=== PATIENT | male | born 1940 | race Caucasian/White ===

== ENCOUNTER 2016-09-28 19:58 | Inpatient (IN) | payer MEDICARE ==
[2016-09-28] MEDS ORDERED: cefTRIAXone(*) 1 GM in NS 0.9% 50 ML* 50 ML IVPB ONE (20:45)
[2016-09-28 21:06] LABS: Hematocrit 40 % (42-52); Hemoglobin 13.9 g/dl (14.0-18.0); Mean Corpuscular HGB Conc 35 g/dl (31-36); Mean Corpuscular Hemoglobin 31 pg (27-31); Mean Corpuscular Volume 90 fL (80-94); Mean Platelet Volume 7 um3 (7.4-10.4); Red Blood Count 4.44 10^6/ul (4.0-5.4); Red Cell Distribution Width 12 % (10.5-15); White Blood Count 9.4 10^3/ul (3.5-10.8)
[2016-09-28 21:13] LABS: Urine Bacteria Absent (Absent); Urine Bilirubin Negative (Negative); Urine Glucose Negative (Negative); Urine Nitrite Negative (Negative)
[2016-09-28 21:21] LABS: BUN/Creatinine Ratio 17.1 (8-20); C Reactive Protein 17.66 mg/L (< 5.00); Calcium 9.3 mg/dL (8.6-10.3); EGFR African American 88.8 (>60); Globulin 2.8 g/dL (2-4); Potassium 3.7 mmol/L (3.5-5.0); Total Bilirubin 0.9 mg/dL (0.2-1.0); Total Protein 6.8 g/dL (6.4-8.9)
--- NOTE | 2016-09-28 21:47 | RAD ---
CLINICAL HISTORY: Fever, flank pain, kidney stones COMPARISON: CT urogram dated November 06, 2015 TECHNIQUE: Multiple contiguous axial CT scans were obtained of the abdomen and pelvis, without intravenous contrast enhancement. Coronal and sagittal multiplanar reformations are submitted for review. Oral contrast was not administered. FINDINGS: The study is limited by the lack of intravenous contrast. This limits evaluation of the solid organs and vasculature. LUNG BASES: The lung bases are clear. LIVER: The liver is normal in shape, size, contour, and attenuation. BILE DUCTS: There is no intrahepatic or extrahepatic biliary dilatation. GALLBLADDER: The gallbladder is incompletely distended and is not well evaluated PANCREAS: The pancreas is normal, without mass or ductal dilatation. SPLEEN: Normal in size and appearance. UPPER GI TRACT: Evaluation of the gastrointestinal tract is limited by incomplete gastric distention. The upper GI tract is unremarkable. SMALL BOWEL AND MESENTERY: The small bowel is normal in contour, course, and caliber. There is no obstruction or dilatation. COLON: The colon is normal in contour, course, caliber. There is no pericolonic inflammatory change. ADRENALS: Normal bilaterally. KIDNEYS: Again noted are 2 calculi of the distal left ureter. This is similar in size and position to the November 06, 2015 examination. There is no appreciable hydronephrosis. There are nonobstructing renal calyceal stones bilaterally BLADDER: The bladder is smooth in contour. PELVIC ORGANS: The prostate is diffusely enlarged. The seminal vesicles are symmetric. AORTA: There is calcific atherosclerotic disease of the abdominal aorta and its branches, without aneurysmal dilatation IVC: Unremarkable LYMPH NODES: There is no lymphadenopathy by size criteria. ABDOMINAL WALL: There is no evidence for abdominal wall hernia. BONES AND SOFT TISSUES: Degenerative changes are noted of the spine OTHER: None IMPRESSION: AGAIN NOTED IS BILATERAL NEPHROLITHIASIS INCLUDING STABLE CALCULI OF THE DISTAL LEFT URETER. THERE IS NO APPRECIABLE HYDRONEPHROSIS ENLARGED PROSTATE
[2016-09-28] MEDS ORDERED: Gentamicin ADULT per pharmacy 1 NOTE MISC FOLLOW UP PRN (23:12)
[2016-09-28] MEDS ORDERED: Ondansetron INJ* 2 MG/ML VIAL IV PRN (23:12)
[2016-09-28] MEDS ORDERED: NS 0.9% 1000 ML* 1,000 ML IV ONE (23:25)
--- NOTE | 2016-09-28 23:25 | ED ---
William Jesus Erika, scribed for Pineda Camarena MD on 09/28/16 at 2125 . GI/ HPI - HPI Summary HPI Summary: Patient is a 76-year-old male presenting to the ED with a CC of fever with kidney stone. Patient reports he has had a left-sided kidney stone for years. Pt then had some hematuria, and CT scan showed that the 6.33 mm stone was moving lower. A few nights ago, patient developed bilateral flank pain, which has since resolved. He reports he has had decreased urine output intermittently this past week. He notes some urgency, but denies burning with urination. Today at 19:00, patient developed chills, lightheadedness, and a dull headache, so checked his temperature, which was 102.8. He called Dr. Mtz who recommended patient come to the ED. - History of Current Complaint Chief Complaint: EDFever Time Seen by Provider: 09/28/16 20:23 Stated Complaint: FEVER 102.7/LIGHT HEADED/FLANK PAIN Hx Obtained From: Patient Onset/Duration: Started Days Ago, Atraumatic, Still Present Timing: Intermittent Severity: Moderate Pain Intensity: 6 Location of Pain: Flank - bilateral Associated Signs and Symptoms: Positive: Fever, Chills, Lightheadedness, Other: - headache - Allergy/Home Medications Allergies/Adverse Reactions: Allergies Allergy/AdvReac Type Severity Reaction Status Date / Time No Known Allergies Allergy Verified 11/06/15 09:11 PMH/Surg Hx/FS Hx/Imm Hx Endocrine/Hematology History: Reports: Hx Thyroid Disease - HX OF HYPERPARATHYROIDISM Denies: Hx Diabetes, Hx Systemic Lupus Erythematosus Cardiovascular History: Denies: Hx Congestive Heart Failure, Hx Hypertension History: Reports: Hx Kidney Stones - HISTORY OF AND CURRENTLY Denies: Hx Dialysis Musculoskeletal History: Reports: Hx Arthritis Denies: Hx Rheumatoid Arthritis Sensory History: Reports: Hx Contacts or Glasses - GLASSES Denies: Hx Hearing Aid Opthamlomology History: Reports: Hx Contacts or Glasses - GLASSES - Cancer History Hx Chemotherapy: No - Surgical History Surgery Procedure, Year, and Place: kidney stones removed 6X+. EXC BLADDER TUMORS 01/23-[facility] [place]. PARATHYROID SURGERY- [place]-20 YEARS Hx Anesthesia Reactions: No Infectious Disease History: Denies: Traveled Outside the [place] in Last 30 Days - Family History Known Family History: Positive: Other - bladder tumor - Social History Alcohol Use: Daily Alcohol Amount: 3 OUNCES DAILY Substance Use Type: Reports: None Hx Tobacco Use: Yes Smoking Status (MU): Former Smoker Amount Used/How Often: X 5 YEARS Have You Smoked in the Last Year: No Review of Systems Positive: Fever, Chills Genitourinary: Other - decreased urine output Positive: flank pain - bilateral, hematuria, urgency. Negative: burning Neurological: Other - lightheadedness Positive: Headache All Other Systems Reviewed And Are Negative: Yes Physical Exam Triage Information Reviewed: Yes Vital Signs On Initial Exam: Initial Vitals Temp Pulse Resp BP Pulse Ox 102.9 F 78 18 122/79 99 09/28/16 20:09 09/28/16 20:09 09/28/16 20:09 09/28/16 20:09 09/28/16 20:09 Vital Signs Reviewed: Yes Appearance: Positive: Well-Appearing, No Pain Distress Skin: Positive: Warm, Skin Color Reflects Adequate Perfusion, Dry Head/Face: Positive: Normal Head/Face Inspection Eyes: Positive: Normal ENT: Positive: Normal ENT inspection Neck: Positive: Supple, Nontender Respiratory/Lung Sounds: Positive: Clear to Auscultation, Breath Sounds Present Cardiovascular: Positive: RRR Abdomen Description: Positive: Nontender, Soft. Negative: CVA Tenderness (R), CVA Tenderness (L) Bowel Sounds: Positive: Present Musculoskeletal: Positive: Normal Neurological: Positive: Normal Psychiatric: Positive: Affect/Mood Appropriate Diagnostics - Vital Signs Vital Signs Temp Pulse Resp BP Pulse Ox 09/28/16 20:09 102.9 F 78 18 122/79 99 - Laboratory Lab Results: Lab Results 09/28/16 09/28/16 09/28/16 Range/Units 20:25 20:25 20:28 WBC 9.4 (3.5-10.8) 10^3/ul RBC 4.44 (4.0-5.4) 10^6/ul Hgb 13.9 L (14.0-18.0) g/dl Hct 40 L (42-52) % MCV 90 (80-94) fL MCH 31 (27-31) pg MCHC 35 (31-36) g/dl RDW 12 (10.5-15) % Plt Count 223 (150-450) 10^3/ul MPV 7 L (7.4-10.4) um3 Neut % (Auto) 80.8 (38-83) % Lymph % (Auto) 9.1 L (25-47) % [place] % (Auto) 9.0 (1-9) % Eos % (Auto) 0.4 (0-6) % Baso % (Auto) 0.7 (0-2) % Absolute Neuts (auto) 7.6 (1.5-7.7) 10^3/ul Absolute Lymphs (auto) 0.9 L (1.0-4.8) 10^3/ul Absolute Monos (auto) 0.8 (0-0.8) 10^3/ul Absolute Eos (auto) 0 (0-0.6) 10^3/ul Absolute Basos (auto) 0.1 (0-0.2) 10^3/ul Absolute Nucleated RBC 0 10^3/ul Nucleated RBC % 0 Sodium 135 (133-145) mmol/L Potassium 3.7 (3.5-5.0) mmol/L Chloride 101 (101-111) mmol/L Carbon Dioxide 29 (22-32) mmol/L Anion Gap 5 (2-11) mmol/L BUN 18 (6-24) mg/dL Creatinine 1.05 (0.67-1.17) mg/dL Est GFR ( Amer) 88.8 (>60) Est GFR (Non-Af Amer) 69.0 (>60) BUN/Creatinine Ratio 17.1 (8-20) Glucose 112 H (70-100) mg/dL Calcium 9.3 (8.6-10.3) mg/dL Total Bilirubin 0.90 (0.2-1.0) mg/dL AST 17 (13-39) U/L ALT 16 (7-52) U/L Alkaline Phosphatase 55 (34-104) U/L C-Reactive Protein 17.66 H (< 5.00) mg/L Total Protein 6.8 (6.4-8.9) g/dL Albumin 4.0 (3.2-5.2) g/dL Globulin 2.8 (2-4) g/dL Albumin/Globulin Ratio 1.4 (1-3) Urine Color Yellow Urine Appearance Clear Urine pH 6.0 (5-9) Ur Specific [place] 1.013 (1.010-1.030) Urine Protein 1+(30 mg/dl) H (Negative) Urine Ketones Negative (Negative) Urine Blood 2+ H (Negative) Urine Nitrate Negative (Negative) Urine Bilirubin Negative (Negative) Urine Urobilinogen Negative (Negative) Ur Leukocyte Esterase 1+ H (Negative) Urine WBC (Auto) 3+(>20/hpf) H (Absent) Urine RBC (Auto) 3+(>10/hpf) H (Absent) Urine Bacteria Absent (Absent) Urine Glucose Negative (Negative) Result Diagrams: 09/28/16 20:25 09/28/16 20:25 Lab Statement: Any lab studies that have been ordered have been reviewed, and results considered in the medical decision making process. - CT CT A/P W/O CT Interpretation Completed By: Radiologist - IMPRESSION: AGAIN NOTED IS BILATERAL NEPHROLITHIASIS INCLUDING STABLE CALCULI OF THE DISTAL LEFT URETER. THERE IS NO APPRECIABLE HYDRONEPHROSIS ENLARGED PROSTATE GIGU Course/Dx - Course Course Of Treatment: Mr. Cox has a UTI and ureterolithiasis. There is no obstruction. He was given fluids and antibiotics and will be admitted to the hospitalist service to be seen by Dr. Mtz in the AM. - Diagnoses Provider Diagnoses: UTI (urinary tract infection), Ureterolithiasis - Physician Notifications Discussed Care Of Patient With: Dr. Mtz (urology) at 21:53 - discussed CT results. recommends admission. Dr. John (hospitalist) at 21:57 - agrees to admit - Critical Care Time Critical Care Time: 30-74 min Discharge - Discharge Plan Condition: Stable Disposition: ADMITTED TO [facility] Referrals: Delmy Jones MD [Primary Care Provider] - The documentation as recorded by the William river Erika accurately reflects the service I personally performed and the decisions made by , Pineda Camarena MD.
[2016-09-29] MEDS: Acetaminophen TAB* 325 MG PO PRN ×2 (00:06→07:51)
[2016-09-29] MEDS ORDERED: HYDROcodone/ACETAMIN 5-325 MG* 1 TAB PO PRN (00:17)
[2016-09-29 05:25] LABS: Hematocrit 41 % (42-52); Hemoglobin 13.7 g/dl (14.0-18.0); Mean Corpuscular HGB Conc 33 g/dl (31-36); Mean Corpuscular Hemoglobin 31 pg (27-31); Mean Corpuscular Volume 92 fL (80-94); Mean Platelet Volume 7 um3 (7.4-10.4); Red Blood Count 4.46 10^6/ul (4.0-5.4); Red Cell Distribution Width 12 % (10.5-15); White Blood Count 10.1 10^3/ul (3.5-10.8)
[2016-09-29] MEDS ORDERED: ALPRAZolam TAB* 0.25 MG PO PRN (07:18)
[2016-09-29] MEDS ORDERED: cefTRIAXone VIAL(*) 1,000 MG VIAL ONE (09:42)
--- NOTE | 2016-09-29 09:42 | HP ---
ADMISSION HISTORY AND PHYSICAL: DATE OF ADMISSION: 09/28/16 CHIEF COMPLAINT: Flank pain and fever. HISTORY OF PRESENT ILLNESS: Mr. Cox is a 76-year-old man with known recurrent kidney stones who reports an episode of bilateral flank pain that began 4 or 5 days ago and resolved without any intervention. The patient reports a longer course of illness where he has had intermittent urgency and gross hematuria in the past 10 to 12 days. He had an ultrasound of his kidneys routinely with Dr. Mtz around 10 to 12 days ago, and at that point there was a kidney stone in the left ureter. The patient had another episode of more urinary urgency and hematuria and had repeat ultrasound with Dr. Mtz about 4 or 5 days prior to admission and this showed that the stone had moved two- thirds the way to the distal ureter. The patient was advised to stay hydrated and was started on Rapaflo to aid passage of the stone. Two nights prior to the admission the patient developed more intense bilateral flank pain and fever with malaise. He has been drinking plenty of fluids but has poor urine output according to him. On the night of admission, the patient had a temperature of 102.7 and was advised by Dr. Mtz to come to the emergency room for admission. PAST MEDICAL HISTORY: Include recurrent kidney stones, history of hyperparathyroidism, which is the cause of recurring kidney stones, but he has had parathyroidectomy completed successfully. 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 PAST SURGICAL HISTORY: Parathyroidectomy and ureteral stent in the past. MEDICATIONS: On admission: 1. Hydrocodone left over from previous event use p.r.n. 2. Ibuprofen 400 mg t.i.d. p.r.n. 3. Atorvastatin 10 mg p.o. q.h.s. 4. Rapaflo 8 mg p.o. daily. ALLERGIES: None. FAMILY HISTORY: Notable for mother of colon cancer. Father had prostate cancer, but of Alzheimer's dementia. The patient has a twin brother who has also had low-grade bladder transitional cell carcinoma. 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 He is . He has one child. His healthcare proxy will be his brother Khurram in [place], [place]. Tobacco use, he quit tobacco age 16, only used it for a few months. Alcohol 3 ounces per day. No recreational drugs. REVIEW OF SYSTEMS: The patient denies any anorexia or weight loss. The patient denies any palpitations or chest pain. The patient denies any cough or shortness of breath. The patient denies any nausea, vomiting, diarrhea, or abdominal pain. Remainder of a 14-point review of systems is negative other than that mentioned in the HPI. PHYSICAL EXAMINATION GENERAL: He is alert, in no acute distress. VITAL SIGNS: Temperature 39.4, pulse 78, respirations 18, blood pressure 123/79 , O2 sat is 99% room air. HEENT: Head is normocephalic, atraumatic. Sclera anicteric. Pupils are equal , round and reactive to light and accommodation. Oropharynx is moist, no lesions. NECK: No JVD. No carotid bruits. No thyromegaly. LUNGS: Clear to auscultation and percussion bilaterally. HEART: Regular rate and rhythm. No murmurs, rubs, or gallops. ABDOMEN: Soft, nontender. Positive bowel sounds. No hepatosplenomegaly. There is no CVA tenderness. EXTREMITIES: No peripheral edema. Dorsalis pedis pulses are 2+ bilaterally. NEUROLOGIC: Cranial nerves II through XII are intact. Motor strength is 5/5 throughout. Deep tendon reflexes are symmetric. LABORATORY DATA: Sodium 135, potassium 3.7, chloride 101, bicarb 29, BUN 18, creatinine 1.05, glucose 112, calcium 9.3, albumin 4.0, AST 17, ALT 16, CRP 17.6. White count 9.4, hemoglobin 13.9, hematocrit 40%, platelet 223. Urinalysis shows 1+ protein, 2+ blood, 2+ white cells, negative nitrites, 3+ red blood cells. EKG shows normal sinus rhythm. No ischemic ST-T wave changes. CT of abdomen and pelvis shows calculus in the left distal ureter with no hydronephrosis. There is also other calculi up in the kidneys that are nonobstructive. ASSESSMENT AND PLAN: A 76-year-old man presenting with pyelonephritis as a complication of renal stone. The patient has had risk of sepsis, likely gram- negative, due to retrograde infection. The patient will be admitted to hospital and be started on ceftriaxone and gentamicin to cover gram-negatives such as E. coli, klebsiella. The patient will require removal or passage of the stone and it is difficult to clear infection with a foreign body in the ureter. The patient will have consultation with Dr. Mtz in the morning likely will need a stent and retrieval. I will continue him on IV fluids and Rapaflo in the interim. Sequential compression devices will be available for DVT prophylaxis as we should avoid heparin worsening his hematuria. CODE STATUS: Full. CC: Dr. Delmy Jones; Dr. Mtz* [id number]/[facility] #: [id number] MTDD
[2016-09-29] MEDS ORDERED: Iohexol 180 (CONTRAST) 10 ML SDV IV ONE (10:00)
[2016-09-29] MEDS ORDERED: Midazolam* 1 MG/ML 2 ML VIAL (2 MG) ONE (10:11)
[2016-09-29] MEDS ORDERED: fentaNYL* 50 MCG/ML 2 ML VIAL (100 MCG VIAL) ONE (10:11)
[2016-09-29] MEDS ORDERED: Ketorolac INJ* 30 MG/ML 1 ML VIAL ONE (10:29)
[2016-09-29] MEDS ORDERED: Ondansetron INJ* 2 MG/ML VIAL ONE (10:29)
[2016-09-29] MEDS ORDERED: Dexamethasone IV* 4 MG/ML 1 ML (4 MG) ONE (10:29)
[2016-09-29] MEDS ORDERED: Propofol* 10 MG/ML 20 ML BTL IV PUSH ONE (10:29)
--- NOTE | 2016-09-29 10:49 | CONS ---
CONSULTATION NOTE: DATE OF CONSULTATION: 09/29/16 HISTORY OF PRESENT ILLNESS: Mr. Cox is a 76-year-old white male who was admitted last night with left flank pain associated with fever and some chills, and who will having urgent placement of a left ureteral stent. I have been following Mr. Cox for several years because of past history of renal calculus disease and because of history of low-grade bladder tumor. He had past history of renal calculi, required stent placement. One year ago, he was worked up because of gross hematuria and had a CT urogram, which showed non obstructing left ureteral calculi measuring about 6 mm. The stones seemed to have passed spontaneously and he has been doing well. He presented about 7 to 10 days ago with left flank pain and hematuria. Office renal ultrasound showed a 6 mm calculus in the proximal left ureter. He had repeat ultrasound and it showed the stone had moved into the distal ureter and there was no associated hydronephrosis. He had only mild pain and no signs of any urinary tract infection. His U/A showed microhematuria but no pyuria. He had been managed conservatively with Rapaflo and pain medication. The patient called me yesterday night because of a fever of 102.6 and associated with chilliness and mild left flank pain. He did not have any voiding symptoms to suggest prostatitis. The patient was sent to the emergency room where his white count was normal. His urinalysis was positive for esterase and blood, negative for nitrites. He had a noncontrast CT of the abdomen and pelvis which showed no hydronephrosis, there was minute stone in each kidney and there were, what seemed like, 2 calculi measuring about 4 to 5 mm each, adjacent to each other, located in the distal left ureter about 4 cm above the ureterovesical junction. The patient was started on IV fluids and given IV Rocephin and gentamicin. He became afebrile during the night and was doing very well. However, this morning he had another fever of 102.6. He did not have any tachycardia nor hypotension. He has been feeling well otherwise. PHYSICAL EXAMINATION: On physical exam today, he looks comfortable. There is mild left CVA tenderness. The rest of the abdominal exam is normal. His vital signs are normal IMPRESSION: Minimally obstructing left ureteral calculi with episodes of fever and mild left flank pain suggestive of pyelonephritis. PLAN: Considering the above, the plan is to perform a cystoscopy and placement of a left ureteral stent. No attempt will be made at ureteroscopy for stone extraction considering that he is still febrile. The patient will require another admission for left ureteroscopy and stone extractions. I discussed the above the plans with the patient. All his questions were answered. [id number]/[facility] #: [id number] DASHAWN
[2016-09-29] MEDS ORDERED: DiMENhydriNATE IV* 50 MG/ML VIAL IV PUSH PRN (10:52)
[2016-09-29] MEDS ORDERED: fentaNYL* 50 MCG/ML 2 ML VIAL (100 MCG VIAL) IV PRN (10:52)
--- NOTE | 2016-09-29 11:03 | PN ---
Subjective Date of Service: 09/29/16 Interval History: Patient seen and examined at bedside. Denies chest pain, SOB, abd pain, flank pain, n/v. No fever/chills recently. Patient recently returned from OR s/p ureteral stent placement. Family History: Unchanged from Admission Social History: Unchanged from Admission Past Medical History: Unchanged from Admission Objective Active Medications: Acetaminophen (Tylenol Tab*) 650 mg PO Q4H PRN PRN Reason: FEVER/HEADACHE Last Admin: 09/29/16 07:51 Dose: 650 mg Hydrocodone Bitart/Acetaminophen ([place] 5-325 Tab*) 1 tab PO Q4H PRN PRN Reason: PAIN Alprazolam (Xanax Tab*) 0.25 mg PO QID PRN PRN Reason: ANXIETY Atorvastatin Calcium (Lipitor*) 10 mg PO 1700 KATH Dimenhydrinate (Dramamine Iv*) 25 mg IV PUSH ONCE PRN PRN Reason: NAUSEA/VOMITING Stop: 09/29/16 10:53 Fentanyl Citrate (Fentanyl*) 50 mcg IV Q5M PRN PRN Reason: PAIN - MODERATE Stop: 09/29/16 11:13 Ceftriaxone Sodium 1,000 mg/ (Sodium Chloride) 50 mls @ 200 mls/hr IVPB Q24H KATH Gentamicin Sulfate 110 mg/ (Sodium Chloride) 102.75 mls @ 205.5 mls/hr IVPB Q12H KATH Ondansetron HCl (Zofran Inj*) 4 mg IV Q6H PRN PRN Reason: NAUSEA Pharmacy Consult (Gentamicin Adult Per Pharmacy) 1 note FOLLOW UP .GENT PER PHARMACY PRN PRN Reason: PER PROTOCOL Stop: 10/12/16 23:12 Pharmacy Profile Note (Gentamicin Peak Level*) 1 note FOLLOW UP 1000 ONE Stop: 09/30/16 10:01 Pharmacy Profile Note (Gentamicin Trough Level) 1 note FOLLOW UP 0830 ONE Stop: 09/30/16 08:31 Silodosin (Rapaflo(Nf)) 8 mg PO DAILY KATH Vital Signs 09/29/16 09/29/16 09/29/16 00:26 00:40 00:43 Temperature 101.7 F 98.9 F 98.9 F Pulse Rate 78 88 88 Respiratory 18 18 18 Rate Blood Pressure 122/79 150/70 150/70 (mmHg) O2 Sat by Pulse 96 Oximetry 05/09/29/16 09/29/16 00:58 00:59 03:31 Temperature 98.7 F Pulse Rate 69 Respiratory 20 18 16 Rate Blood Pressure 152/68 (mmHg) O2 Sat by Pulse 98 Oximetry 09/29/16 09/29/16 09/29/16 07:36 07:47 08:00 Temperature 102.4 F 102.3 F Pulse Rate 88 Respiratory 13 Rate Blood Pressure 136/67 (mmHg) O2 Sat by Pulse 96 Oximetry 09/29/16 09/29/16 09/29/16 08:53 10:47 10:50 Temperature 99.6 F 98.4 F Pulse Rate 64 65 Respiratory 16 15 Rate Blood Pressure 109/65 108/64 (mmHg) O2 Sat by Pulse 100 100 Oximetry Oxygen Devices in Use Now: None Appearance: Older male patient, lying in bed, NAD Eyes: PERRLA Ears/Nose/Mouth/Throat: Mucous Membranes Moist Neck: NL Appearance and Movements; NL JVP Respiratory: Symmetrical Chest Expansion and Respiratory Effort, Clear to Auscultation Cardiovascular: NL Sounds; No Murmurs; No JVD, RRR Abdominal: NL Sounds; No Tenderness; No Distention Extremities: No Edema Neurological: Alert and Oriented x 3 Lines/Tubes/Other Access: Clean, Dry and Intact Peripheral IV Result Diagrams: 09/29/16 05:11 09/28/16 20:25 Additional Lab and Data: Lab Results 09/28/16 09/28/16 09/28/16 Range/Units 20:25 20:25 20:28 WBC 9.4 (3.5-10.8) 10^3/ul RBC 4.44 (4.0-5.4) 10^6/ul Hgb 13.9 L (14.0-18.0) g/dl Hct 40 L (42-52) % MCV 90 (80-94) fL MCH 31 (27-31) pg MCHC 35 (31-36) g/dl RDW 12 (10.5-15) % Plt Count 223 (150-450) 10^3/ul MPV 7 L (7.4-10.4) um3 Neut % (Auto) 80.8 (38-83) % Lymph % (Auto) 9.1 L (25-47) % [place] % (Auto) 9.0 (1-9) % Eos % (Auto) 0.4 (0-6) % Baso % (Auto) 0.7 (0-2) % Absolute Neuts (auto) 7.6 (1.5-7.7) 10^3/ul Absolute Lymphs (auto) 0.9 L (1.0-4.8) 10^3/ul Absolute Monos (auto) 0.8 (0-0.8) 10^3/ul Absolute Eos (auto) 0 (0-0.6) 10^3/ul Absolute Basos (auto) 0.1 (0-0.2) 10^3/ul Absolute Nucleated RBC 0 10^3/ul Nucleated RBC % 0 Sodium 135 (133-145) mmol/L Potassium 3.7 (3.5-5.0) mmol/L Chloride 101 (101-111) mmol/L Carbon Dioxide 29 (22-32) mmol/L Anion Gap 5 (2-11) mmol/L BUN 18 (6-24) mg/dL Creatinine 1.05 (0.67-1.17) mg/dL Est GFR ( Amer) 88.8 (>60) Est GFR (Non-Af Amer) 69.0 (>60) BUN/Creatinine Ratio 17.1 (8-20) Glucose 112 H (70-100) mg/dL Calcium 9.3 (8.6-10.3) mg/dL Total Bilirubin 0.90 (0.2-1.0) mg/dL AST 17 (13-39) U/L ALT 16 (7-52) U/L Alkaline Phosphatase 55 (34-104) U/L C-Reactive Protein 17.66 H (< 5.00) mg/L Total Protein 6.8 (6.4-8.9) g/dL Albumin 4.0 (3.2-5.2) g/dL Globulin 2.8 (2-4) g/dL Albumin/Globulin Ratio 1.4 (1-3) Urine Color Yellow Urine Appearance Clear Urine pH 6.0 (5-9) Ur Specific [place] 1.013 (1.010-1.030) Urine Protein 1+(30 mg/dl) H (Negative) Urine Ketones Negative (Negative) Urine Blood 2+ H (Negative) Urine Nitrate Negative (Negative) Urine Bilirubin Negative (Negative) Urine Urobilinogen Negative (Negative) Ur Leukocyte Esterase 1+ H (Negative) Urine WBC (Auto) 3+(>20/hpf) H (Absent) Urine RBC (Auto) 3+(>10/hpf) H (Absent) Urine Bacteria Absent (Absent) Urine Glucose Negative (Negative) Assess/Plan/Problems-Billing Assessment: Mr. 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 - Patient Problems (1) Pyelonephritis, acute Code(s): N10 - ACUTE PYELONEPHRITIS Comment: Likely secondary to nephrolithiasis Continue ceftriaxone and gentamicin Awaiting urine culture (2) Ureteral calculus, left Code(s): N20.1 - CALCULUS OF URETER Comment: Urology following Patient s/p ureteral stent placement Continue ceftriaxone and gentamicin for now; per urology, may be able to stop gentamicin if patient remains afebrile over next 8 hours. Await urine cultures. (3) DVT prophylaxis Code(s): LMT3355 - Comment: SCDs Anticoagulation contraindicated with hematuria Status and Disposition: Inpatient admission. Anticipate LOS >2 days.
--- NOTE | 2016-09-29 11:05 | RAD ---
INDICATION: Left stent insertion COMPARISON: CT September 28, 2016 FINDINGS: 0.1 minutes of fluoroscopy were provided for the [facility] department. Fluoroscopic spot imaging of the abdomen were obtained for operative control and show a retrograde study with passage of a catheter level of the left renal pelvis. The collecting system is not dilated. CPT II Codes: 6045F (fluoro time doc)
[2016-09-29] MEDS: Silodosin(NF) 8 MG CAP PO SCH (11:20)
[2016-09-29] MEDS ORDERED: oxyCODONE/Acetamin 5/325 MG* TAB PO PRN ×2 (12:08)
--- NOTE | 2016-09-29 16:18 | OP ---
DATE OF OPERATION: 09/29/16 - ROOM #334 DATE OF : 44 SURGEON: Haim Mtz MD. ANESTHESIOLOGIST: Robi Bowman MD ANESTHESIA: General. PRE-OP DIAGNOSES: 1. Left ureteral calculus. 2. Left pyelonephritis. POST-OP DIAGNOSES: 1. Left ureteral calculus. 2. Left pyelonephritis. OPERATIVE PROCEDURES: 1. Cystoscopy. 2. Left retrograde pyelography and placement of left ureteral stent (6 Turkish). INDICATIONS: Mr. Cox is a 76-year-old white male who is a known stone former and who has been followed in the office over the last 2 weeks because of a a 6-mm left ureteral calculus. He has been managed conservatively as the stone was dropping along the course of the ureter. Last night he developed a fever of 102.6. Urinalysis was positive for white cells and blood, negative for bacteria. His white count was normal. Noncontrast CT of the abdomen and pelvis showed a 6-mm calculus in the distal left ureter with no significant hydronephrosis. Patient was admitted for IV antibiotics, and he had another spike of fever early this morning. His vital signs remained normal otherwise. Because of the above history and suspected associated left pyelonephritis, probably caused by intermittent obstruction by the stone, the patient is taken to the operating room for urgent placement of left ureteral stent. Because of the associated urinary infection, no attempts will be made for stone extraction. Pathology: At cystoscopy, the penile and bulbar urethrae looked normal. The prostatic urethra measured about 2.5 cm in length and there was only early obstruction by prostate enlargement. Examination of the bladder showed normal mucosa. There were no changes of cystitis. There was scarring in the right base of the bladder consistent with excision of a small bladder tumor in the past. The ureteral orifices looked normal. There were no calculi or diverticula or bladder lesions seen. Upon left retrograde pyelography, there was no significant hydronephrosis noted. The urine from the left kidney looked clear. DESCRIPTION OF PROCEDURE: After successful general anesthesia, patient was placed in the lithotomy position and was prepped and draped for a cystoscopy. Cystoscopy was performed. The bladder was carefully inspected and the above findings were noted. A flexible-tip guidewire was then introduced into the left orifice and under fluoroscopy was positioned in the area of the renal pelvis. A size 5-Turkish open- ended catheter was then fed on top of the guidewire and positioned in the area of the renal pelvis. There was no hydronephrotic drip noted. The urine from the left kidney looked clear. Retrograde pyelography was then performed by injecting only 3 mL of non-diluted contrast. It demonstrated no hydronephrosis. A size 6-Turkish stent was then placed with the proximal end coiling in the collecting system and a distal end coiling inside the bladder. There was good drainage of contrast from the kidney. Patient tolerated the procedure well and left the operating room in good condition. The plan is to treat his urinary infection. He will be brought back in another week or two for left ureteroscopy and extraction of the left ureteral calculus. CC: Dr. Delmy Jones [id number]/CPS #: [id number] MTDD
[2016-09-29] MEDS ORDERED: Atorvastatin* 10 MG TAB PO SCH (17:00)
[2016-09-30 06:04] LABS: Hematocrit 36 % (42-52); Hemoglobin 12.2 g/dl (14.0-18.0); Mean Corpuscular HGB Conc 34 g/dl (31-36); Mean Corpuscular Hemoglobin 31 pg (27-31); Mean Corpuscular Volume 91 fL (80-94); Mean Platelet Volume 7 um3 (7.4-10.4); Red Blood Count 3.96 10^6/ul (4.0-5.4); Red Cell Distribution Width 12 % (10.5-15); White Blood Count 14.9 10^3/ul (3.5-10.8)
[2016-09-30 06:17] LABS: BUN/Creatinine Ratio 23.6 (8-20); Calcium 8.5 mg/dL (8.6-10.3); EGFR African American 107.5 (>60); EGFR Non-African American 83.6 (>60); Potassium 4.2 mmol/L (3.5-5.0)
[2016-09-30] MEDS ORDERED: cefTRIAXone VIAL(*) 1,000 MG in NS 0.9% 50 ML* 50 ML IVPB SCH (09:00)
[2016-09-30] MEDS: Silodosin(NF) 8 MG CAP PO SCH (09:25)
[2016-09-30] MEDS ORDERED: Gentamicin Trough Level 1 NOTE MISC FOLLOW UP ONE (09:30)
[2016-09-30] MEDS ORDERED: Gentamicin PEAK LEVEL* 1 NOTE MISC FOLLOW UP ONE (11:00)
--- NOTE | 2016-09-30 11:25 | DCNOTE ---
Subjective Date of Service: 09/30/16 Interval History: Patient seen and examined at bedside. Denies any acute complaints, including fever/chills, CP, SOB, flank pain, n/v. Denies any blood in urine though reports small piece of "tissue." No other acute concerns. Patient is fully dressed and eager to go home. Family History: Unchanged from Admission Social History: Unchanged from Admission Past Medical History: Unchanged from Admission Objective Active Medications: Acetaminophen (Tylenol Tab*) 650 mg PO Q4H PRN PRN Reason: FEVER/HEADACHE Last Admin: 09/29/16 07:51 Dose: 650 mg Alprazolam (Xanax Tab*) 0.25 mg PO QID PRN PRN Reason: ANXIETY Last Admin: 09/29/16 21:23 Dose: 0.25 mg Atorvastatin Calcium (Lipitor*) 10 mg PO 1700 [facility] Last Admin: 09/29/16 17:25 Dose: 10 mg Ceftriaxone Sodium 1,000 mg/ (Sodium Chloride) 50 mls @ 200 mls/hr IVPB Q24H [facility] Last Admin: 09/30/16 08:55 Dose: 200 mls/hr Lactated Ringer's (Lactated Ringers 1000 Ml Bag*) 1,000 mls @ 150 mls/hr IV .PER RATE [facility] Last Admin: 09/29/16 12:09 Dose: 150 mls/hr Ondansetron HCl (Zofran Inj*) 4 mg IV Q6H PRN PRN Reason: NAUSEA Oxycodone/Acetaminophen (Percocet 5/325 Tab*) 1 tab PO Q4H PRN PRN Reason: PAIN Oxycodone/Acetaminophen (Percocet 5/325 Tab*) 2 tab PO Q4H PRN PRN Reason: PAIN Silodosin (Rapaflo(Nf)) 8 mg PO DAILY [facility] Last Admin: 09/30/16 09:25 Dose: Not Given Vital Signs 09/29/16 09/29/16 09/29/16 11:30 11:31 11:41 Temperature 97.4 F 97.4 F 97.6 F Pulse Rate 66 66 63 Respiratory 18 18 13 Rate Blood Pressure 108/66 108/66 105/62 (mmHg) O2 Sat by Pulse 98 98 Oximetry 09/29/16 09/29/16 09/29/16 12:37 12:47 14:07 Temperature 97.7 F 97.5 F Pulse Rate 62 63 Respiratory 11 13 Rate Blood Pressure 99/59 100/57 (mmHg) O2 Sat by Pulse 98 97 Oximetry 09/29/16 09/29/16 09/29/16 15:19 16:00 16:32 Temperature 97.0 F Pulse Rate 58 Respiratory 14 Rate Blood Pressure 99/56 (mmHg) O2 Sat by Pulse 99 99 99 Oximetry 09/29/16 09/29/16 09/29/16 18:11 20:00 21:23 Temperature 98.2 F Pulse Rate 60 Respiratory 20 17 16 Rate Blood Pressure 121/69 (mmHg) O2 Sat by Pulse 100 Oximetry 09/29/16 09/29/16 09/30/16 22:50 23:23 03:30 Temperature 97.5 F 97.5 F Pulse Rate 57 64 Respiratory 16 16 16 Rate Blood Pressure 121/66 107/63 (mmHg) O2 Sat by Pulse 97 98 Oximetry 09/30/16 09/30/16 07:18 08:40 Temperature 98.1 F Pulse Rate 62 Respiratory 20 16 Rate Blood Pressure 125/68 (mmHg) O2 Sat by Pulse 98 Oximetry Oxygen Devices in Use Now: None Appearance: Male patient, ambulating in room, NAD Eyes: PERRLA Ears/Nose/Mouth/Throat: Mucous Membranes Moist Neck: NL Appearance and Movements; NL JVP Respiratory: Symmetrical Chest Expansion and Respiratory Effort, Clear to Auscultation Cardiovascular: NL Sounds; No Murmurs; No JVD, RRR Abdominal: NL Sounds; No Tenderness; No Distention Extremities: No Edema Neurological: Alert and Oriented x 3 Lines/Tubes/Other Access: Clean, Dry and Intact Peripheral IV Nutrition: Taking PO's Result Diagrams: 09/30/16 05:39 09/30/16 05:39 Additional Lab and Data: Lab Results 09/28/16 09/28/16 09/28/16 Range/Units 20:25 20:25 20:28 WBC 9.4 (3.5-10.8) 10^3/ul RBC 4.44 (4.0-5.4) 10^6/ul Hgb 13.9 L (14.0-18.0) g/dl Hct 40 L (42-52) % MCV 90 (80-94) fL MCH 31 (27-31) pg MCHC 35 (31-36) g/dl RDW 12 (10.5-15) % Plt Count 223 (150-450) 10^3/ul MPV 7 L (7.4-10.4) um3 Neut % (Auto) 80.8 (38-83) % Lymph % (Auto) 9.1 L (25-47) % Bureau % (Auto) 9.0 (1-9) % Eos % (Auto) 0.4 (0-6) % Baso % (Auto) 0.7 (0-2) % Absolute Neuts (auto) 7.6 (1.5-7.7) 10^3/ul Absolute Lymphs (auto) 0.9 L (1.0-4.8) 10^3/ul Absolute Monos (auto) 0.8 (0-0.8) 10^3/ul Absolute Eos (auto) 0 (0-0.6) 10^3/ul Absolute Basos (auto) 0.1 (0-0.2) 10^3/ul Absolute Nucleated RBC 0 10^3/ul Nucleated RBC % 0 Sodium 135 (133-145) mmol/L Potassium 3.7 (3.5-5.0) mmol/L Chloride 101 (101-111) mmol/L Carbon Dioxide 29 (22-32) mmol/L Anion Gap 5 (2-11) mmol/L BUN 18 (6-24) mg/dL Creatinine 1.05 (0.67-1.17) mg/dL Est GFR ( Amer) 88.8 (>60) Est GFR (Non-Af Amer) 69.0 (>60) BUN/Creatinine Ratio 17.1 (8-20) Glucose 112 H (70-100) mg/dL Calcium 9.3 (8.6-10.3) mg/dL Total Bilirubin 0.90 (0.2-1.0) mg/dL AST 17 (13-39) U/L ALT 16 (7-52) U/L Alkaline Phosphatase 55 (34-104) U/L C-Reactive Protein 17.66 H (< 5.00) mg/L Total Protein 6.8 (6.4-8.9) g/dL Albumin 4.0 (3.2-5.2) g/dL Globulin 2.8 (2-4) g/dL Albumin/Globulin Ratio 1.4 (1-3) Urine Color Yellow Urine Appearance Clear Urine pH 6.0 (5-9) Ur Specific Badger 1.013 (1.010-1.030) Urine Protein 1+(30 mg/dl) H (Negative) Urine Ketones Negative (Negative) Urine Blood 2+ H (Negative) Urine Nitrate Negative (Negative) Urine Bilirubin Negative (Negative) Urine Urobilinogen Negative (Negative) Ur Leukocyte Esterase 1+ H (Negative) Urine WBC (Auto) 3+(>20/hpf) H (Absent) Urine RBC (Auto) 3+(>10/hpf) H (Absent) Urine Bacteria Absent (Absent) Urine Glucose Negative (Negative) Microbiology and Other Data: Microbiology 09/29/16 05:11 Aerobic Blood Culture - Preliminary Blood Venous No Growth Day 1 Anaerobic Blood Culture - Preliminary No Growth Day 1 Assess/Plan/Problems-Billing Assessment: Mr. 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 - Patient Problems (1) Leukocytosis Code(s): D72.829 - ELEVATED WHITE BLOOD CELL COUNT, UNSPECIFIED Comment: Patient afebrile and clinically improved. Suspect leukemoid reaction following stent placement. Follow-up outpatient CBC Continue antibiotics for treatment of pyelonephritis. (2) Pyelonephritis, acute Code(s): N10 - ACUTE PYELONEPHRITIS Comment: Likely secondary to nephrolithiasis Urine culture grew enterococcus. Per Dr. Mtz, continue patient on Augmentin for additional 7 days. (3) Ureteral calculus, left Code(s): N20.1 - CALCULUS OF URETER Comment: Urology following Patient s/p ureteral stent placement D/c home on Augmentin. Outpatient follow-up with urology in 10-14 days; [facility] will call patient. (4) DVT prophylaxis Code(s): GAY2044 - Comment: SCDs Anticoagulation contraindicated with hematuria Status and Disposition: Inpatient admission. D/c to home.
[2016-09-30 11:51] VITALS: BP 132/68
--- NOTE | 2016-10-01 16:15 | DS ---
DISCHARGE SUMMARY: DATE OF ADMISSION: 09/28/16 DATE OF DISCHARGE: 09/30/16 PROVIDER: Sachin Rowe NP ATTENDING PHYSICIAN: Dr. Jacklyn Delgado* (dictated by Sachin Rowe NP) CONSULTING PHYSICIAN: Dr. Haim Mtz, Urology. PRIMARY CARE PROVIDER: Dr. Delmy Jones. PRIMARY DISCHARGE DIAGNOSES: 1. Pyelonephritis. 2. Left ureteral stone, status post stent placement. SECONDARY DISCHARGE DIAGNOSES: 1. Recurrent kidney stones. 2. History of hyperparathyroidism, status post parathyroidectomy. 3. Bladder outlet obstruction. 4. Previous biopsy showing low-grade transitional cell carcinoma of the bladder. MEDICATIONS AT DISCHARGE: 1. Atorvastatin 10 mg daily. 2. Ibuprofen 200 mg daily p.r.n. 3. Xanax 0.25 mg q.i.d. p.r.n. 4. Rapaflo 8 mg daily. 5. Augmentin 875 mg b.i.d. x1 week. This is a new medication. HOSPITAL COURSE OF STAY: For full details, please refer to the H and P provided by Dr. John on 09/28/16. In summary, Mr. Cox is a 76-year-old gentleman with previous recurrent kidney stones, who presented to the ER with concerns for flank pain and fever. The patient's CT of the abdomen and pelvis showed a calculus in the left distal ureter with no hydronephrosis. There are also other calculi and the kidneys are nonobstructive. The patient was admitted with concern for sepsis, likely gram-negative, secondary to retrograde infection from a renal stone and subsequent pyelonephritis. The patient was started on ceftriaxone and gentamicin. On 09/29/16, Dr. Mtz took the patient to the OR for a left ureteral stent placement, which the patient tolerated well. The patient was continued on his antibiotics and gentamicin was discontinued after his evening dose. The patient had no significant fevers following his stent placement. He continued to deny flank pain. He was urinating without difficulty. The patient was reevaluated by Dr. Mtz in the morning who recommended the patient could be discharged to home with followup in the outpatient setting. The patient's microbiology urine culture report showed enterococcus faecalis, which had sensitivities to Augmentin. The patient's CBC on 09/30/16 did show a mildly elevated white count of 14.9. However, the patient was clinically improved, afebrile, and has no acute complaints. This was more likely a leukemoid reaction to the patient's recent stent placement. He is to follow up with outpatient CBC. The patient states that he will be in [place] over the next 10 days, but will have the labs drawn tomorrow to make sure that his white blood cell count is resolving appropriately. Results will be sent to his PCP. CONCERNS AT DISCHARGE: Mr. Cox will be discharged to home on 09/28/16. FOLLOWUP NEEDS UPON DISCHARGE: The patient is to have outpatient CBC, which we will monitor to ensure that the patient's CBC does not show any persistent or increasing leukocytosis. DIET: The patient will resume his regular diet. ACTIVITY: As tolerated. CONDITION: Stable. DISPOSITION: To home. TIME SPENT: Time spent on this discharge was approximately 40 minutes. Again, this is only a brief summary of the patient's hospital course of stay. For full details, please refer to the full medical record. If you have any further questions or need further assistance, please feel free to contact me at . SACHIN ROWE NP CC: Dr. Jones; Dr. Haim Mtz* [id number]/[facility] #: [id number] MTDShaan
== END 2016-09-30 12:00 | disposition home or self-care (01) | DRG 690 ==
LOC: ED 19:58 → SSU 23:30
PROVIDERS: ADMIT Internal Medicine; ATTEND Internal Medicine
PROC: BT1FYZZ Fluoroscopy of Left Kidney, Ureter and Bladder using Other Contrast (ICD-10-PCS; 2016-09-29)
PROC: 0T778DZ Dilation of Left Ureter with Intraluminal Device, Via Natural or Artificial Opening Endoscopic (ICD-10-PCS; principal; 2016-09-29 10:00)
DX: N10 Acute pyelonephritis (principal); N20.2 Calculus of kidney with calculus of ureter; E21.3 Hyperparathyroidism, unspecified; Z79.1 Long term (current) use of non-steroidal anti-inflammatories (NSAID); Z87.442 Personal history of urinary calculi; Z79.891 Long term (current) use of opiate analgesic; Z79.899 Other long term (current) drug therapy; Z80.0 Family history of malignant neoplasm of digestive organs; Z80.42 Family history of malignant neoplasm of prostate; Z80.52 Family history of malignant neoplasm of bladder; Z85.51 Personal history of malignant neoplasm of bladder
CPT/HCPCS: 36415; 74176; 74420; 80048; 80053; 81003; 81015; 85025; 85610; 85730; 86140; 87040; 87077; 87086; 87186; 93005; 94760; A9270-GY; C1876; J0696; J1100; J1580; J1885; J2250; J2405; J2704; J3010

== ENCOUNTER 2016-10-16 12:26 | Day surgery (SDC) | payer MEDICARE ==
[~2016-10-16 12:26] MED LIST: Buffered Lidocaine 0.9% SYRIN* 5 ML/SYR SYRINGE ONE; Famotidine IV* 10 MG/ML 2 ML (20 mg) IV ONE; Famotidine IV* 10 MG/ML 2 ML (20 mg) ONE; Metoclopramide TAB* 10 MG ONE; Metoclopramide TAB* 10 MG PO ONE; cefTRIAXone(*) 2 GM ADDV.VIAL IVPB ONE
[2016-10-16] MEDS ORDERED: Ketorolac INJ* 30 MG/ML 1 ML VIAL ONE (13:46)
[2016-10-16] MEDS ORDERED: Propofol* 10 MG/ML 20 ML BTL IV PUSH ONE (13:46)
[2016-10-16] MEDS ORDERED: Ondansetron INJ* 2 MG/ML VIAL ONE (13:46)
[2016-10-16] MEDS ORDERED: Lidocaine 2% PF * 5 ML VIAL ONE (13:46)
[2016-10-16] MEDS ORDERED: Dexamethasone IV* 4 MG/ML 1 ML (4 MG) ONE (13:46)
[2016-10-16] MEDS ORDERED: fentaNYL* 50 MCG/ML 2 ML VIAL (100 MCG VIAL) ONE ×2 (13:47→15:20)
[2016-10-16] MEDS ORDERED: Midazolam* 1 MG/ML 5 ML VIAL (5 MG) ONE (13:47)
[2016-10-16] MEDS ORDERED: KETAMINE HCL* 50 MG/ML 10 ML VIAL ONE (13:47)
[2016-10-16] MEDS ORDERED: Iohexol 180 (CONTRAST) 10 ML SDV IV ONE (14:24)
[2016-10-16] MEDS ORDERED: EPHEDrine (Pressors)* 50 MG/ML VIAL ONE (14:48)
[2016-10-16] MEDS ORDERED: Ondansetron INJ* 2 MG/ML VIAL IV PRN (15:02)
[2016-10-16] MEDS ORDERED: oxyCODONE/Acetamin 5/325 MG* TAB PO PRN (15:02)
[2016-10-16] MEDS ORDERED: fentaNYL* 50 MCG/ML 2 ML VIAL (100 MCG VIAL) IV PRN (15:02)
--- NOTE | 2016-10-16 16:26 | RAD ---
INDICATION: Stent placement. COMPARISON: Comparison is made with a prior CT of the abdomen and pelvis from September 28, 2016. TECHNIQUE: 18 seconds of intermittent fluoroscopic guidance were provided and 3 spot films of the abdomen were centered on the left side. FINDINGS: There is partial opacification of the left renal collecting system. Subsequently there is placement of a double-J stent catheter on the left side which demonstrates normal course. IMPRESSION: INTRAOPERATIVE CONTROL FILMS. CPT II Codes: 6045F
[2016-10-16 16:32] VITALS: BP 129/71
--- NOTE | 2016-10-16 22:38 | OP ---
CC: Dr. Jones * DATE OF OPERATION: 10/16/16 - [facility] DATE OF : 44 SURGEON: Haim Mtz MD ANESTHESIOLOGIST: Dr. Saeed Munson. ANESTHESIA: General. PRE-OP DIAGNOSIS: Left ureteral calculi, status post placement of left ureteral stent. POST-OP DIAGNOSIS: Left ureteral calculi, status post placement of left ureteral stent. OPERATIVE PROCEDURE: 1. Cystoscopy. 2. Left ureteroscopy, laser lithotripsy and extraction of left ureteral calculi (6 mm and 3 mm). 3. Left retrograde pyelography and left ureteral stent exchange (6-Peruvian). INDICATION FOR PROCEDURE: Mr. Cox is 76-year-old white male who is a known stone former and who was admitted on 09/29/16 with left renal colic associated with fever and chills. He was noted on a non-contrast CT to have two calculi in the distal third of the left ureter measuring 6 mm and 3 mm in size with moderate hydronephrosis. The patient had urgent placement of a ureteral stent. He responded well to antibiotic treatment. He is now being admitted for definitive treatment of the stones. PATHOLOGY AT CYSTOSCOPY: The penile and bulbar urethrae looked normal. The prostatic urethra measured about 2.5 to 3 cm in length and there was moderate degree of obstruction by trilobar hyperplasia of the prostate. Examination of the bladder showed the distal limb of the stent coming from the left orifice. There was the expected hyperemia of the bladder mucosa adjacent to the stent. Examination of the rest of the bladder looked normal. Upon left ureteroscopy, there were 2 calculi located about 3 to 4 cm above the level of the orifice. The calculi were impacted and there was significant degree of edema and hyperemia of the adjacent ureteral mucosa. The calculi had the gross appearance of calcium oxalate stones. They measured about 6 and 3 mm in size. DESCRIPTION OF PROCEDURE: After successful general anesthesia, the patient was placed in the lithotomy position and was prepped and draped for cystoscopy. Cystoscopy was then performed. The bladder was inspected. The distal limb of the stent was pulled out to the level of the orifice. A flexible-tip guidewire was introduced to the lumen of the stent and positioned in the area of the renal pelvis and the stent was removed. A size 6.5 semirigid ureteroscope was then introduced inside the bladder and then inside the ureter. The ureter was dilated and there was easy introduction of the ureteroscope in the ureter. The calculi were identified. Using the holmium laser fiber, the stones were broken into multiple fragments. Using the spiral basket, the fragments were extracted and sent for stone analysis. After final inspection, there were no residual stone fragments seen. There was expected hyperemia of the ureteral mucosa, but there was no evidence of any perforation. Left retrograde pyelography was then performed and a 6-Peruvian stent was then placed with the proximal end coiling in the renal pelvis and the distal end coiling inside the bladder. There was good drainage of contrast from the kidney and no extravasation. The scope was then removed and a size 16-Peruvian Mims catheter was passed inside the bladder and the balloon inflated. The patient tolerated the procedure well and left the operating room in good condition. The plan is to leave the stent in place for about 1 week. It will be removed in the office under local anesthesia. [id number]/CPS #: [id number] MTDD
== END 2016-10-16 16:50 ==
LOC: OR 12:26
PROVIDERS: ATTEND Urology
DX: N20.1 Calculus of ureter (principal); N40.1 Benign prostatic hyperplasia with lower urinary tract symptoms; N13.8 Other obstructive and reflux uropathy; Z96.0 Presence of urogenital implants; Z87.891 Personal history of nicotine dependence
CPT/HCPCS: 74420; 82365; 88300; A9270-GY; C1876; J0696; J1100; J1885; J2250; J2405; J2704; J3010

== ENCOUNTER 2016-10-21 16:52 | Inpatient (IN) | payer MEDICARE ==
[2016-10-21 18:19] LABS: Hematocrit 45 % (42-52); Hemoglobin 14.7 g/dl (14.0-18.0); Mean Corpuscular HGB Conc 33 g/dl (31-36); Mean Corpuscular Hemoglobin 30 pg (27-31); Mean Corpuscular Volume 92 fL (80-94); Mean Platelet Volume 7 um3 (7.4-10.4); Red Blood Count 4.84 10^6/ul (4.0-5.4); Red Cell Distribution Width 12 % (10.5-15); White Blood Count 11.1 10^3/ul (3.5-10.8)
[2016-10-21 18:34] LABS: Albumin 4.5 g/dL (3.2-5.2); BUN/Creatinine Ratio 17.1 (8-20); C Reactive Protein 63.28 mg/L (< 5.00); Calcium 9.9 mg/dL (8.6-10.3); EGFR African American 88.8 (>60); Total Bilirubin 2.4 mg/dL (0.2-1.0); Total Protein 7.5 g/dL (6.4-8.9)
[2016-10-21 18:39] LABS: Potassium 4.4 mmol/L (3.5-5.0)
--- NOTE | 2016-10-21 19:16 | RAD ---
HISTORY: Pain and fever COMPARISONS: CT dated September 28, 2016, CT urogram dated July 08, 2015 TECHNIQUE: Multiple transverse and longitudinal ultrasound images were obtained of the kidneys using grayscale and color Doppler imaging. FINDINGS: RIGHT KIDNEY: The right kidney is normal in shape, size, contour, and echogenicity. There is mild caliectasis versus parapelvic cysts. Based on the comparison to the previous CT urogram, these are likely parapelvic cyst. The right kidney measures 12.1 x 4.1 x 5.7 cm. LEFT KIDNEY: The left kidney is normal in shape, size, contour, and echogenicity. There is mild caliectasis versus parapelvic cysts. Based on the comparison to the previous CT urogram, these are likely parapelvic cyst. The left kidney measures 12.5 x 6.4 x 6.2 cm. BLADDER: No images are submitted of the bladder. AORTA AND IVC: No images are submitted of the vasculature. RETROPERITONEUM: Unremarkable. OTHER: None. IMPRESSION: BILATERAL CALIECTASIS VERSUS PARAPELVIC RENAL CYSTS. BASED ON COMPARISON TO THE CT UROGRAM OF NOVEMBER 05, 2014, THESE ARE LIKELY PARAPELVIC CYSTS
[2016-10-21 21:12] LABS: Urine Bacteria Absent (Absent); Urine Bilirubin Negative (Negative); Urine Glucose Negative (Negative); Urine Nitrite Negative (Negative)
[2016-10-21] MEDS ORDERED: Acetaminophen TAB* 325 MG PO ONE (21:39)
[2016-10-21] MEDS ORDERED: NS 0.9% 1000 ML* 2,000 ML IV ONE (21:39)
[2016-10-21] MEDS ORDERED: Acetaminophen TAB* 325 MG PO PRN (21:39)
[2016-10-21] MEDS ORDERED: Ondansetron INJ* 2 MG/ML VIAL IV PRN (21:39)
[2016-10-21] MEDS ORDERED: NS 0.9% 1000 ML* 1,000 ML IV SCH (21:45)
[2016-10-21] MEDS ORDERED: Calcium Carbonate CHEW TAB* 500 MG (TUMS) PO ONE (21:58)
--- NOTE | 2016-10-21 23:20 | HP ---
CC: Dr. Jones; Dr. Mtz * HISTORY AND PHYSICAL: DATE OF ADMISSION: 10/21/16 PRIMARY CARE PROVIDER: Dr. Jones ATTENDING PHYSICIAN WHILE IN THE HOSPITAL: Dr. Abimael Wagner * (report dictated by Goran Abdi NP). CONSULTING UROLOGIST: Dr. Mtz. CHIEF COMPLAINT: 1. Fever. 2. Aching. 3. Malaise. 4. Myalgias. HISTORY OF PRESENT ILLNESS: Mr. Cox is a 76-year-old male patient who recently was here in the end of September with a nephrolithiasis that was felt to be infected. Ureteral stent was placed. The patient was placed on Augmentin. He finished the course. He was following closely with Dr. Mtz. He was to have a stent taken out this week. Unfortunately though in the last 24 hours, he has been having generalized aches and pains, feeling malaise, having fevers, chills. He took his temperature at home. It was 100.4. He called Dr. Mtz 's office. He was evaluated there. Urine culture was sent, but the fevers continued and Dr. Mtz deferred the patient to the ER as he was concerned that he may have another urinary infection with the stent and may require IV antibiotics. The patient states that he has been having some dysuria. He denies having any pain. He says he has just been having a fever and he feels, in his own words, wore out. He denies any nausea, vomiting, diarrhea. No cough , no shortness of breath. He was evaluated in the ER today and was noted to be tachycardic, febrile. His urine was concerning for possible infection. He had a lot of leukocyte esterase and wbc's there, and because of this, we were asked to evaluate for admission. PAST MEDICAL HISTORY: Significant for: 1. Nephrolithiasis. 2. Hyperlipidemia. 3. Hyperparathyroidism. 4. History of a bladder tumor. PAST SURGICAL HISTORY: 1. He has had a parathyroidectomy. 2. He has had multiple cystoscopies with ureteral stenting due to the kidney stone. HOME MEDICATIONS: Include Lipitor 10 mg p.o. daily. ALLERGIES TO MEDICATIONS: No known drug allergies. FAMILY HISTORY: His mother had a history of colon cancer. Father had a history of prostate cancer. SOCIAL HISTORY: He is a former smoker. He does drink 3 ounces of whisky daily. Surrogate decision maker is his daughter. REVIEW OF SYSTEMS: There is no documented fever. He denied having any significant weight change. There was no double vision. He denies having any ear discharge. There was no rhinorrhea. No sore throat, no thyroid enlargement. Denies having any chest pain. There is no orthopnea. There is no nocturnal dyspnea. He denies having any abdominal pain. There was some dysuria, there was frequency. There was no seizure, no loss of consciousness. No pruritus and no skin ulcerations. Review of 14 systems completed, all others negative. PHYSICAL EXAMINATION GENERAL: At this time, Mr. Cox is a 76-year-old male patient. He is sitting in the ER stretcher. He does not appear to be in acute distress. VITAL SIGNS: Blood pressure 122/78 with a pulse of 90, respirations 20, O2 sat 98%, temperature 99.1. I did repeat the temperature, it was 101.9. HEENT: Head atraumatic, normocephalic. Eyes: EOMs intact. Sclerae anicteric , not pale. Throat: Oral mucosa appears to be moist. No oropharyngeal erythema. NECK: Supple. LUNGS: Clear to auscultation bilaterally. No wheezes, rales, or rhonchi. HEART: Sounds S1, S2. Regular rate and rhythm. He is tachycardic. ABDOMEN: Soft, flat, nontender. Bowel sounds are present. No CVA tenderness. EXTREMITIES: Pulses 2+ throughout. He had no peripheral edema. He had 5/5 strength in all 4 extremities. NEUROLOGIC: He is awake, alert, and oriented x3. Tongue midline. Rover Tender were equal. No gross focal deficits. SKIN: Grossly intact. DIAGNOSTIC STUDIES/LAB DATA: Labs today reveal WBC of 11.1, RBC of 4.84, hemoglobin 14.7, hematocrit of 45, platelet count of 188. Sodium was 129, potassium 4.4, chloride of 97, bicarb 24, BUN 18, creatinine 1.05, glucose 113, calcium 9.9, total bili 2.4, AST 18, ALT 18, alk phos 55. CRP 53. Albumin 4.5. Urine showed 2+ protein, trace ketones, 3+ blood, 3+ leukocyte esterase, 3 + wbc, 3+ rbc, absent bacteria. Serology was negative for flu. He had a renal ultrasound obtained today, which revealed bilateral calcaneus versus parapelvic renal cysts. Based on prior comparison to CT urogram in November , these were likely parapelvic cysts. Old medical records were reviewed. ASSESSMENT AND PLAN: Mr. Cox is a 76-year-old male patient coming into the ER today after being instructed to come here for evaluation of fever with recent stenting in the ureter on the right side. It was found that he had a fever. He was noted to have a urine that was suspicious for urinary tract infection. We were asked to evaluate for admission. He will be admitted under observation status for: 1. Urosepsis. Again, he does have elements of sepsis due to the fact that he is tachycardic and he has a fever, but he is not showing any signs of severe sepsis such as shock. At this point, we will go ahead and give him 2 L of fluid. Blood cultures and a lactic, and we will put him on Zosyn. We will get urine culture. I suspect the source is probably from a urinary source given the dysuria and given the fact that his urine again was positive and recent instrumentation. Dr. Mtz will evaluate the patient tomorrow. He has been consulted. We will hydrate him aggressively. We will continue to follow. 2. Nephrolithiasis. Again at this point, he is going to be followed with Dr. Mtz. 3. Hyperparathyroidism. Continue his current medical regimen. 4. Hyperlipidemia. Continue statin therapy. 5. History of bladder tumor. Follow with Dr. Mtz in the outpatient setting. 6. DVT prophylaxis. He is moderate risk, placed on heparin subcu. 7. Code status. Full code. 8. Fluid, electrolytes, nutrition. He can have a regular diet. TIME SPENT: Time spent on the admission was approximately 60 minutes; greater than half that time was spent [id number] with the patient obtaining my history and physical, other half the time was spent going over the plan of care with the patient and implementing the plan of care. I did discuss the plan of care with my attending, Dr. Wagner; he is in agreement. GORAN ABDI, GREGG [id number]/[facility] #: [id number] DASHAWN
[2016-10-21] MEDS: Heparin VIAL(*) 5000 UNITS/ML VIAL (FIVE THOUSAND) SUBCUT SCH (23:40)
--- NOTE | 2016-10-22 00:58 | ED ---
Marisol Jesus [place], scribed for Oh Murray MD on 10/21/16 at 1909 . GI/ HPI - HPI Summary HPI Summary: Patient is a 76 y/o M who presents to the ED with multiple complaints. Pt had a ureter stent placed last week and began to develop a fever today (100.9F per pt) . He was put back on Augmentin by Dr. tMz today. Dr. Mtz decided to delay stent removal for another day (originally schedule for 2 days from now). He decided to come into the ER when it reached 103F this afternoon. He denies dysuria, but reports hematuria for 3-4 days following stent placement. He also reports weakness, soreness of thighs since this afternoon and dull neck and headache intermittently since yesterday. Pt reports taking Aleve at 0800 today with little alleviation of fever. He states that he will be flying out in a week and would like to have stent removal delayed till his return. - History of Current Complaint Chief Complaint: EDUrogenitalProblems Time Seen by Provider: 10/21/16 18:08 Stated Complaint: FEVER,POSS KIDNEY INFECTION-SENT BY DEBI Ramos Obtained From: Patient Onset/Duration: Started Days Ago, Atraumatic, Still Present Timing: Intermittent Severity: Moderate Current Severity: Moderate Pain Intensity: 0 Associated Signs and Symptoms: Positive: Weakness, Hematuria - Additional Pertinent History Primary Care Physician: RAFFAELE - Allergy/Home Medications Allergies/Adverse Reactions: Allergies Allergy/AdvReac Type Severity Reaction Status Date / Time No Known Allergies Allergy Verified 10/21/16 22:22 PMH/Surg Hx/FS Hx/Imm Hx Endocrine/Hematology History: Denies: Hx Anticoagulant Therapy, Hx Blood Disorders, Hx Blood Transfusions, Hx Bone Marrow Disease, Hx Diabetes, Hx Systemic Lupus Erythematosus, Hx Sickle Cell Disease, Hx Thyroid Disease, Hx Anemia, Hx Unexplained Bleeding, Other Endocrine/Hematological Disorders Cardiovascular History: Denies: Hx Aneurysm, Hx Angina, Hx Angioplasty, Hx Auto Implanted Cardiovert Defib, Hx Congestive Heart Failure, Hx Deep Vein Thrombosis, Hx Embolism, Hx Hypercholesterolemia, Hx Hypotension, Hx Hypertension, Hx Pacemaker/ICD, Hx Peripheral Vascular Disease, Hx Rheumatic Fever, Hx Syncope Respiratory History: Reports: Hx Seasonal Allergies Denies: Hx Asthma, Hx Chronic Bronchitis, Hx Chronic Obstructive Pulmonary Disease (COPD), Hx Cystic Fibrosis, Hx Lung Cancer, Hx Pleural Effusion, Hx Pneumonia, Hx Pulmonary Edema, Hx Pulmonary Embolism, Hx Sleep Apnea, Other Respiratory Problems/Disorders GI History: Denies: Hx Cirrhosis, Hx Crohn's Disease, Hx Diverticulosis, Hx Gall Bladder Disease, Hx Gastroesophageal Reflux Disease, Hx Gastrointestinal Bleed, Hx Hiatal Hernia, Hx Irritable Bowel, Hx Jaundice, Hx Obstructive Bowel, Hx Ileostomy, Hx Pyloric Stenosis, Hx Ulcer, Other GI Disorders History: Reports: Hx Kidney Infection - A FEW WEEKS AGO, Hx Kidney Stones - HISTORY OF AND CURRENTLY, Hx Renal Disease - extensive HX of kidney stones Denies: Hx Acute Renal Failure, Hx Benign Prostatic Hyperplasia, Hx Chronic Renal Failure, Hx Dialysis Comment Only: Other Problems/Disorders - kidney stones Musculoskeletal History: Reports: Hx Arthritis Denies: Hx Rheumatoid Arthritis Sensory History: Reports: Hx Contacts or Glasses - GLASSES, Hx Hearing Problem - 60% Denies: Hx Cataracts, Hx Eye Injury, Hx Eye Prosthesis, Hx Glaucoma, Hx Legally Blind, Hx Macular Degeneration, Hx Vision Problem, Hx Deafness, Hx Hearing Aid, Other Sensory Impairments Opthamlomology History: Reports: Hx Contacts or Glasses - GLASSES Denies: Hx Cataracts, Hx Eye Injury, Hx Eye Prosthesis, Hx Glaucoma, Hx Legally Blind, Hx Macular Degeneration, Hx Vision Problem, Other Sensory Impairments Psychiatric History: Denies: Hx Anxiety, Hx Attention Deficit Hyperactivity Disorder, Hx Eating Disorder, Hx Depression, Hx Panic Disorder, Hx Post Traumatic Stress Disorder, Hx Inpatient Treatment, Hx Community Mental Health Tx, Hx Schizophrenia, Hx Bipolar Disorder, Hx Suicide Attempt, Hx of Violent Episodes Against Others, Hx Substance Abuse, Other Psychiatric Issues/Disorders - Cancer History Hx Chemotherapy: No Hx Radiation Therapy: No Hx Palliative Cancer Treatment: No - Surgical History Surgery Procedure, Year, and Place: kidney stones removed 6X+. EXC BLADDER TUMORS 01/23-[facility]. PARATHYROID SURGERY- [place]-20 YEARS. 09/2016- STENT INSERTION- [facility] – [place] Hx Anesthesia Reactions: No Infectious Disease History: No Infectious Disease History: Denies: Hx Hepatitis, Hx Tuberculosis, Traveled Outside the [place] in Last 30 Days - Family History Known Family History: Positive: Other - bladder tumor. - Social History Occupation: Retired Alcohol Use: Daily Alcohol Amount: 3 OUNCES DAILY Hx Substance Use: No Substance Use Type: Reports: None Hx Tobacco Use: Yes Smoking Status (MU): Former Smoker Amount Used/How Often: 1 PPD X 7 YEARS Have You Smoked in the Last Year: No Review of Systems Positive: Fever. Negative: Chills Negative: Erythema Negative: Sore Throat Negative: Chest Pain Negative: Shortness Of Breath, Cough Negative: Abdominal Pain, Vomiting, Nausea Negative: dysuria, incontinence Positive: Other - soreness of thighs. Dull neck pain. . Negative: Decreased ROM , Edema Negative: Rash Neurological: Other - No dizziness. Positive: Headache - Dull. , Weakness All Other Systems Reviewed And Are Negative: Yes Physical Exam - Summary Physical Exam Summary: Constitutional: Well-developed, Well-nourished, Alert. (-) Distressed. No meningismus. Skin: Warm, Dry HENT: Normocephalic; Atraumatic Eyes: Conjunctiva normal Neck: Musculoskeletal ROM normal neck. (-) JVD, (-) Stridor, (-) Tracheal deviation Cardio: Rhythm regular, rate normal, Heart sounds normal; Intact distal pulses; The pedal pulses are 2+ and symmetric. Radial pulses are 2+ and symmetric. (-) Murmur Pulmonary/Chest wall: Effort normal. (-) Respiratory distress, (-) Wheezes, (-) Rales Abd: Soft, (-) Tenderness, (-) Distension, (-) Guarding, (-) Rebound Musculoskeletal: (-) Edema Lymph: (-) Cervical adenopathy Neuro: Alert, Oriented x3 Psych: Mood and affect Normal Triage Information Reviewed: Yes Vital Signs On Initial Exam: Initial Vitals Temp Pulse Resp BP Pulse Ox 100.0 F 102 20 135/86 97 10/21/16 16:54 10/21/16 16:54 10/21/16 16:54 10/21/16 16:54 10/21/16 16:54 Vital Signs Reviewed: Yes - [place] Coma Scale Coma Scale Total: 15 Diagnostics - Vital Signs Vital Signs Temp Pulse Resp BP Pulse Ox 10/21/16 17:57 99.1 F 90 20 152/78 98 10/21/16 16:57 100.0 F 102 20 135/86 97 10/21/16 16:54 100.0 F 102 20 135/86 97 - Laboratory Lab Results: Lab Results 10/21/16 10/21/16 Range/Units 18:05 18:05 WBC 11.1 H (3.5-10.8) 10^3/ul RBC 4.84 (4.0-5.4) 10^6/ul Hgb 14.7 (14.0-18.0) g/dl Hct 45 (42-52) % MCV 92 (80-94) fL MCH 30 (27-31) pg MCHC 33 (31-36) g/dl RDW 12 (10.5-15) % Plt Count 188 (150-450) 10^3/ul MPV 7 L (7.4-10.4) um3 Neut % (Auto) 78.6 (38-83) % Lymph % (Auto) 9.3 L (25-47) % [place] % (Auto) 11.4 H (1-9) % Eos % (Auto) 0.2 (0-6) % Baso % (Auto) 0.5 (0-2) % Absolute Neuts (auto) 8.7 H (1.5-7.7) 10^3/ul Absolute Lymphs (auto) 1.0 (1.0-4.8) 10^3/ul Absolute Monos (auto) 1.3 H (0-0.8) 10^3/ul Absolute Eos (auto) 0 (0-0.6) 10^3/ul Absolute Basos (auto) 0.1 (0-0.2) 10^3/ul Absolute Nucleated RBC 0 10^3/ul Nucleated RBC % 0 Sodium 129 L (133-145) mmol/L Potassium 4.4 (3.5-5.0) mmol/L Chloride 97 L (101-111) mmol/L Carbon Dioxide 24 (22-32) mmol/L Anion Gap 8 (2-11) mmol/L BUN 18 (6-24) mg/dL Creatinine 1.05 (0.67-1.17) mg/dL Est GFR ( Amer) 88.8 (>60) Est GFR (Non-Af Amer) 69.0 (>60) BUN/Creatinine Ratio 17.1 (8-20) Glucose 113 H (70-100) mg/dL Calcium 9.9 (8.6-10.3) mg/dL Total Bilirubin 2.40 H (0.2-1.0) mg/dL AST 18 (13-39) U/L ALT 18 (7-52) U/L Alkaline Phosphatase 65 (34-104) U/L C-Reactive Protein 63.28 H (< 5.00) mg/L Total Protein 7.5 (6.4-8.9) g/dL Albumin 4.5 (3.2-5.2) g/dL Globulin 3.0 (2-4) g/dL Albumin/Globulin Ratio 1.5 (1-3) Result Diagrams: 10/21/16 18:05 10/21/16 18:05 Lab Statement: Any lab studies that have been ordered have been reviewed, and results considered in the medical decision making process. - Ultrasound No standard instances Ultrasound Interpretation Completed By: Radiologist - RENAL IMPRESSION: BILATERAL CALIECTASIS VERSUS PARAPELVIC RENAL CYSTS. BASED ON COMPARISON TO THE CT UROGRAM OF NOVEMBER 05, 2014, THESE ARE LIKELY PARAPELVIC CYSTS - Additional Comments Diagnostic Additional Comments: Influenza A and B (rapid): negative Re-Evaluation - Re-Evaluation First Eval Re-Evaluation Time: 20:19 GIGU Course/Dx - Course Course Of Treatment: 76 y/o M presents with urogenital complaint. He denies dysuria, but reports hematuria for 3-4 days following stent placement. He also reports weakness, soreness of thighs since this afternoon and dull neck and headache intermittently since yesterday. Upon examination, pt denies photophobia. He has no consistent sx to suggest meningitis. Pt will be admitted. Dr. Mtz (urologist). He discussed the case with Dr. Abdi. - Diagnoses Provider Diagnoses: UTI (urinary tract infection), infected ureteral stent - Physician Notifications Discussed Care Of Patient With: Goran Abdi Time Discussed With Above Provider: 21:18 Instructed by Provider To: Admit As Inpatient Admit/Transition Orders Completed By ED Provider: Yes Discharge - Discharge Plan Condition: Stable Disposition: ADMITTED TO [facility] Referrals: Delmy Jones MD [Primary Care Provider] - The documentation as recorded by the [place] [place] accurately reflects the service I personally performed and the decisions made by me, Oh Murray MD.
[2016-10-22 05:15] LABS: Hematocrit 39 % (42-52); Hemoglobin 13.2 g/dl (14.0-18.0); Mean Corpuscular HGB Conc 34 g/dl (31-36); Mean Corpuscular Hemoglobin 30 pg (27-31); Mean Corpuscular Volume 91 fL (80-94); Mean Platelet Volume 7 um3 (7.4-10.4); Red Blood Count 4.34 10^6/ul (4.0-5.4); Red Cell Distribution Width 12 % (10.5-15); White Blood Count 12.5 10^3/ul (3.5-10.8)
[2016-10-22 05:29] LABS: Calcium 8.5 mg/dL (8.6-10.3); EGFR African American 93.9 (>60); Potassium 3.5 mmol/L (3.5-5.0)
[2016-10-22] MEDS: Heparin VIAL(*) 5000 UNITS/ML VIAL (FIVE THOUSAND) SUBCUT SCH ×3 (05:51→21:54)
[2016-10-22] MEDS: NS 0.9% 1000 ML* 1,000 ML IV SCH ×2 (10:10→21:53)
--- NOTE | 2016-10-22 11:13 | PN ---
Subjective Date of Service: 10/22/16 Interval History: Patient seen and examined at bedside. Reports fever/chills overnight and this morning. Denies CP, SOB, flank pain. Did have one episode of n/v this AM. Feeling better after Zofran, tolerating jamie owen and crackers. Family History: Unchanged from Admission Social History: Unchanged from Admission Past Medical History: Unchanged from Admission Objective Active Medications: Acetaminophen (Tylenol Tab*) 650 mg PO Q4H PRN PRN Reason: FEVER/PAIN Last Admin: 10/22/16 10:10 Dose: 650 mg Atorvastatin Calcium (Lipitor*) 10 mg PO 1700 KATH Heparin Sodium (Porcine) (Heparin Vial(*)) 5,000 units SUBCUT Q8HR [facility] Last Admin: 10/22/16 05:51 Dose: 5,000 units Piperacillin Sod/Tazobactam (Sod 3.375 gm/ Sodium Chloride) 100 mls @ 25 mls/ hr IVPB Q8H [facility] Last Admin: 10/22/16 10:10 Dose: 25 mls/hr Sodium Chloride (Ns 0.9% 1000 Ml*) 1,000 mls @ 100 mls/hr IV PER RATE [facility] Last Admin: 10/22/16 10:10 Dose: 100 mls/hr Ondansetron HCl (Zofran Inj*) 4 mg IV Q6H PRN PRN Reason: NAUSEA Last Admin: 10/22/16 10:24 Dose: 4 mg Vital Signs 10/21/16 10/21/16 10/21/16 22:13 22:17 22:21 Temperature Pulse Rate 116 121 131 Respiratory Rate Blood Pressure 160/96 176/111 (mmHg) O2 Sat by Pulse 97 96 95 Oximetry 10/21/16 10/21/16 10/22/16 22:30 23:18 04:29 Temperature 99.1 F 101.9 F Pulse Rate 119 127 109 Respiratory 19 20 Rate Blood Pressure 141/75 127/63 118/62 (mmHg) O2 Sat by Pulse 96 95 95 Oximetry 10/22/16 10/22/16 10/22/16 07:10 09:47 10:17 Temperature 98.0 F 99.2 F Pulse Rate 77 92 Respiratory 16 26 Rate Blood Pressure 105/63 152/76 184/90 (mmHg) O2 Sat by Pulse 96 98 Oximetry Oxygen Devices in Use Now: None Appearance: Male patient, lying in bed, NAD Eyes: PERRLA Ears/Nose/Mouth/Throat: Mucous Membranes Moist Neck: NL Appearance and Movements; NL JVP Respiratory: Symmetrical Chest Expansion and Respiratory Effort, Clear to Auscultation Cardiovascular: RRR - grade 1 systolic murmur Abdominal: NL Sounds; No Tenderness; No Distention Extremities: No Edema Neurological: Alert and Oriented x 3 Lines/Tubes/Other Access: Clean, Dry and Intact Peripheral IV Result Diagrams: 10/22/16 04:15 10/22/16 04:15 Additional Lab and Data: Lab Results 10/21/16 10/21/16 Range/Units 18:05 18:05 WBC 11.1 H (3.5-10.8) 10^3/ul RBC 4.84 (4.0-5.4) 10^6/ul Hgb 14.7 (14.0-18.0) g/dl Hct 45 (42-52) % MCV 92 (80-94) fL MCH 30 (27-31) pg MCHC 33 (31-36) g/dl RDW 12 (10.5-15) % Plt Count 188 (150-450) 10^3/ul MPV 7 L (7.4-10.4) um3 Neut % (Auto) 78.6 (38-83) % Lymph % (Auto) 9.3 L (25-47) % [place] % (Auto) 11.4 H (1-9) % Eos % (Auto) 0.2 (0-6) % Baso % (Auto) 0.5 (0-2) % Absolute Neuts (auto) 8.7 H (1.5-7.7) 10^3/ul Absolute Lymphs (auto) 1.0 (1.0-4.8) 10^3/ul Absolute Monos (auto) 1.3 H (0-0.8) 10^3/ul Absolute Eos (auto) 0 (0-0.6) 10^3/ul Absolute Basos (auto) 0.1 (0-0.2) 10^3/ul Absolute Nucleated RBC 0 10^3/ul Nucleated RBC % 0 Sodium 129 L (133-145) mmol/L Potassium 4.4 (3.5-5.0) mmol/L Chloride 97 L (101-111) mmol/L Carbon Dioxide 24 (22-32) mmol/L Anion Gap 8 (2-11) mmol/L BUN 18 (6-24) mg/dL Creatinine 1.05 (0.67-1.17) mg/dL Est GFR ( Amer) 88.8 (>60) Est GFR (Non-Af Amer) 69.0 (>60) BUN/Creatinine Ratio 17.1 (8-20) Glucose 113 H (70-100) mg/dL Calcium 9.9 (8.6-10.3) mg/dL Total Bilirubin 2.40 H (0.2-1.0) mg/dL AST 18 (13-39) U/L ALT 18 (7-52) U/L Alkaline Phosphatase 65 (34-104) U/L C-Reactive Protein 63.28 H (< 5.00) mg/L Total Protein 7.5 (6.4-8.9) g/dL Albumin 4.5 (3.2-5.2) g/dL Globulin 3.0 (2-4) g/dL Albumin/Globulin Ratio 1.5 (1-3) Assess/Plan/Problems-Billing Assessment: Mr. Cox is a 76 yo male with a PMH of nephrolithiasis, HLD, bladder tumor, and hyperparathyroidism who presented to the ED on 10/21 with concern for fever/ chills following recent stent placement; patient admitted for urosepsis and found to have afib overnight that has since converted to sinus rhythm. - Patient Problems (1) Sepsis Comment: Patient here in September 2016 with pyleonephritis thought to be secondary to infected stone. Recently seen by Dr. Mtz for stent and stone removal and new stent placement. Now with concern for sepsis, suspect urinary source. Patient meets sepsis criteria by SIRS with elevated temperature, tachycardia, and increased WBCs. Patient with positive blood cx in all 4 bottles, growing gram positive cocci resembling strep Continue Zosyn, IVF Appreciate ID consult (2) Atrial fibrillation Code(s): I48.91 - UNSPECIFIED ATRIAL FIBRILLATION Comment: Transient overnight, spontaneously converted back to SR Patient denies any previous hx of afib, was asymptomatic during episode [id number] - discussed stroke risk with asymptomatic atrial fib Patient is very anxious about this and wishes to hold off on anticoagulants at this time. He would like to continue telemetry monitoring during this admission. Open to readdressing anticoagulation if repeat episodes. Recommend outpatient monitoring if no further episodes. (3) Nephrolithiasis Code(s): N20.0 - CALCULUS OF KIDNEY Comment: Hx of recurrent nephrolithiasis, s/p recent stent placement Renal US with concern for bilateral caliectasis vs parapelvic renal cysts - thought to be parapelvic cysts. Appreciate urology consult (4) HLD (hyperlipidemia) Code(s): E78.5 - HYPERLIPIDEMIA, UNSPECIFIED Comment: Continue atorvastatin (5) DVT prophylaxis Comment: SQ heparin Status and Disposition: OBV to inpatient admit. Anticipate dc in 1-3 days.
[2016-10-22] MEDS ORDERED: Acetaminophen TAB* 325 MG PO ONE ×2 (11:45)
[2016-10-22] MEDS ORDERED: Calcium Carbonate CHEW TAB* 500 MG (TUMS) PO PRN (16:52)
[2016-10-22] MEDS ORDERED: Calcium Carbonate CHEW TAB* 500 MG (TUMS) ONE (17:03)
[2016-10-22] MEDS: Atorvastatin* 10 MG TAB PO SCH (17:09)
--- NOTE | 2016-10-22 18:18 | CONS ---
CONSULTATION REPORT: DATE OF CONSULT: 10/22/16 REQUESTING PROVIDER: Lou Pimentel NP. CONSULTING SERVICE: Infectious Disease. REASON FOR CONSULTATION: Gram-positive bacteremia. IMPRESSION: 1. Four of four bottles with gram-positive cocci in chains resembling streptococcus given that he had grown enterococcus in his urine on September 28, this is likely also to be Enterococcus faecalis. The source is likely urinary tract including prostate or related to his nephrolithiasis. He does have what is apparently a new murmur, confirm for seeding of the heart valve and endocarditis is on a differential. He has no prosthetic material present and no other focal signs or symptoms to suggest another site of distant spread including no spine tenderness or joint synovitis. 2. Nephrolithiasis with a history of laser treatment of kidney stones including most recently October 16, at which time he also had a left ureteral stent exchanged, which is still in place. 3. History of bladder tumor resection. 4. New onset atrial fibrillation in the setting of infection. RECOMMENDATIONS: 1. I agree with Zosyn while we await the final speciation and sensitivity on the organism. His urine culture from this admission is pending as well. 2. Transesophageal echocardiogram to rule out infective endocarditis. 3. I will discuss with Dr. Mtz to see if he would like to exchange the stent while he is on IV antibiotics here. HISTORY OF PRESENT ILLNESS: This is a 76-year-old man with left ureteral stent and recent stent exchange and removal of left kidney stones, now with fever and rigors. They developed over the end of last week and over the weekend. His fever was getting worse, so he was directed to the ER by Dr. Mtz. He had a headache and myalgia as well as fever and shaking chills. He was having some dysuria, which he associated with recent stent change. When he was seen in the ER, he was febrile and tachycardic. He was normotensive and had a white count of 11,000. Urinalysis showed ketones, blood, leukocyte esterase, and influenza PCR was done and was negative. His creatinine was 1. CRP was 65. He has had fever up to 38.6 today. He feels drenched in sweat today, but no more shaking chills since starting on Zosyn overnight. Blood cultures were sent last night, 4 of 4 gram-positive cocci in chains. Urine culture is pending. He has no back pain or joint symptoms. He has no prosthetic material present. PAST MEDICAL HISTORY: 1. History of resection of the bladder tumor. 2. Nephrolithiasis status post laser therapy and ureteral stents including one that is present now. 3. Hyperlipidemia. 4. Hyperparathyroidism. 5. Status post partial parathyroidectomy. MEDICATIONS: 1. Tylenol. 2. Lipitor. 3. Calcium. 4. Heparin subcutaneous injection. 5. Zosyn 3.375 g every 8 hours by extended infusion. ALLERGIES: No known drug allergies. FAMILY HISTORY: No recurrent infections. SOCIAL HISTORY: He lives in [place]. He is retired. Recent travel to [facility] [place]. No sick contacts. REVIEW OF SYSTEMS: A full review of systems was negative except as noted above. PHYSICAL EXAM: Vital Signs: Temperature is 36.7, heart rate 70, respiratory rate 18, blood pressure 106/54, O2 sat 98% on room air. General: He is awake, not in distress. Neurologic: He is oriented x3. Follows all commands. Moves all extremities. HEENT: There is no conjunctival hemorrhage. Oropharynx without lesions. Neck: Supple without nuchal rigidity. Lymph Nodes: There is no cervical, supraclavicular, inguinal, axillary, or epitrochlear lymphadenopathy. Heart: Regular rate and rhythm without murmurs, rubs, or gallops. There is a 2/6 systolic murmur. Lungs: Clear to auscultation bilaterally. Abdomen: Soft, nontender, and nondistended without hepatosplenomegaly. Skin: There are no rashes or splinter hemorrhages. Musculoskeletal: There is no spinal tenderness to palpation or joint synovitis. DIAGNOSTIC STUDIES/LAB DATA: Creatinine 1.0. White blood cell count 12, hemoglobin 13, and platelets of 152. Please see impressions and recommendations outlined above, which I have discussed with Lou Pimentel NP. Thank you for asking me to see Mr. Cox in consultation. [id number]/[facility] #: [id number] DASHAWN
[2016-10-22] MEDS: Acetaminophen TAB* 325 MG PO PRN (19:35)
[2016-10-22] MEDS: ALPRAZolam TAB* 0.5 MG PO PRN (21:53)
[2016-10-23 06:17] LABS: Hematocrit 34 % (42-52); Hemoglobin 11.5 g/dl (14.0-18.0); Mean Corpuscular HGB Conc 34 g/dl (31-36); Mean Corpuscular Hemoglobin 31 pg (27-31); Mean Corpuscular Volume 91 fL (80-94); Mean Platelet Volume 8 um3 (7.4-10.4); Red Blood Count 3.68 10^6/ul (4.0-5.4); Red Cell Distribution Width 13 % (10.5-15); White Blood Count 9.6 10^3/ul (3.5-10.8)
[2016-10-23] MEDS: Heparin VIAL(*) 5000 UNITS/ML VIAL (FIVE THOUSAND) SUBCUT SCH ×2 (06:23→13:53)
[2016-10-23 06:34] LABS: BUN/Creatinine Ratio 17.8 (8-20); Calcium 8.1 mg/dL (8.6-10.3); EGFR African American 86.9 (>60); EGFR Non-African American 67.6 (>60); Potassium 3.9 mmol/L (3.5-5.0)
[2016-10-23] MEDS: NS 0.9% 1000 ML* 1,000 ML IV SCH ×2 (08:05→17:29)
[2016-10-23] MEDS: Acetaminophen TAB* 325 MG PO PRN (08:06)
[2016-10-23] MEDS ORDERED: Midazolam* 1 MG/ML 5 ML VIAL (5 MG) ONE (09:37)
[2016-10-23] MEDS ORDERED: Flumazenil* 0.1 MG/ML 5 ML MDV ONE (09:38)
[2016-10-23] MEDS ORDERED: fentaNYL* 50 MCG/ML 2 ML VIAL (100 MCG VIAL) ONE (09:38)
[2016-10-23] MEDS ORDERED: Lidocaine 2% VISCOUS* 15 ML UDC ONE (09:38)
[2016-10-23] MEDS ORDERED: Naloxone* 0.4 MG/ML 1 ML VIAL ONE (09:38)
--- NOTE | 2016-10-23 14:04 | PN ---
Progress Note - Progress Note SOAP: Subjective: DOS: 10/23/16 CC: fever HPI: 76 yo man with left ureteral stent admitted with fever and rigors; E. fecalis bacteremia. Another fever this morning with sweats reported. I saw him just after JAMIE, he could not participate in discussion. Objective: [] Temp Pulse Resp BP Pulse Ox 36.3 C 67 20 120/59 100 10/23/16 13:14 10/23/16 13:14 10/23/16 13:14 10/23/16 13:14 10/23/16 13:14 Tm 103 Gen:awake, drowsy, no distress HEENT:PERRL, MMM Neck:supple Heart: regular, 2/6 systolic murmur Lungs:CTA BL Abd:+BS NTND soft Skin: no rash MSK: n ojoint synovitis Laboratory Results - last 24 hr 10/23/16 10/23/16 05:24 05:24 WBC 9.6 RBC 3.68 L Hgb 11.5 L Hct 34 L MCV 91 MCH 31 MCHC 34 RDW 13 Plt Count 123 L MPV 8 Neut % (Auto) 82.6 Lymph % (Auto) 5.4 L [place] % (Auto) 11.6 H Eos % (Auto) 0.1 Baso % (Auto) 0.3 Absolute Neuts (auto) 8.0 H Absolute Lymphs (auto) 0.5 L Absolute Monos (auto) 1.1 H Absolute Eos (auto) 0 Absolute Basos (auto) 0 Absolute Nucleated RBC 0 Nucleated RBC % 0 Sodium 135 Potassium 3.9 Chloride 108 Carbon Dioxide 21 L Anion Gap 6 BUN 19 Creatinine 1.07 Est GFR ( Amer) 86.9 Est GFR (Non-Af Amer) 67.6 BUN/Creatinine Ratio 17.8 Glucose 125 H Calcium 8.1 L Microbiology 10/21/16 20:27 Urine Culture - Preliminary Urine Enterococcus Faecalis 10/21/16 22:15 Aerobic Blood Culture - Preliminary Blood Venous Enterococcus Faecalis Anaerobic Blood Culture - Final Enterococcus Faecalis Blood Culture - Final 10/21/16 22:00 Aerobic Blood Culture - Final Blood Venous Enterococcus Faecalis Anaerobic Blood Culture - Final Enterococcus Faecalis Blood Culture - Final Assessment: 1. sepsis, present on admission 2. E.fecalis bacteremia due to urinary tract infection; prostatitis and pyelonephritis, with stent involvement. JAMIE showed ho vegetation. 3. nephrolithiasis with left ureteral stent 4. new onset atrial fibrillation brought on by infection Plan: 1. DC zosyn start ampicillin 2 gm IV Q6hrs, 7 days from negative BC, then long chain beamer PO abx for prostatitis 2. Dr Mtz will exchange stent 10/24. Discussed with Dr Mtz, GREGG Pimentel and the patient's daughter updating her.
[2016-10-23] MEDS: Ampicillin ADVAN(*) 1 GM in NS 0.9% 50 ML* 50 ML IVPB SCH ×2 (15:02→20:47)
--- NOTE | 2016-10-23 15:08 | PN ---
Subjective Date of Service: 10/23/16 Interval History: Patient seen and examined at bedside. Patient denies chest pain, palpitations, SOB, n/v. He is very anxious about acute illness. Spoke with Maricarmen Cox, patient's daughter re: POC. Patient in agreement with antibiotic treatment but is reluctant to start any other medications for atrial fib. Family History: Unchanged from Admission Social History: Unchanged from Admission Past Medical History: Unchanged from Admission Objective Active Medications: Acetaminophen (Tylenol Tab*) 650 mg PO Q4H PRN PRN Reason: FEVER/PAIN Last Admin: 10/23/16 08:06 Dose: 650 mg Alprazolam (Xanax Tab*) 0.5 mg PO Q6HR PRN PRN Reason: ANXIETY Last Admin: 10/22/16 21:53 Dose: 0.5 mg Atorvastatin Calcium (Lipitor*) 10 mg PO 1700 KATH Last Admin: 10/22/16 17:09 Dose: 10 mg Calcium Carbonate (Tums*) 500 mg PO Q4H PRN PRN Reason: DYSPEPSIA Heparin Sodium (Porcine) (Heparin Vial(*)) 5,000 units SUBCUT Q8HR [facility] Last Admin: 10/23/16 13:53 Dose: 5,000 units Sodium Chloride (Ns 0.9% 1000 Ml*) 1,000 mls @ 100 mls/hr IV PER RATE [facility] Last Admin: 10/23/16 08:05 Dose: 100 mls/hr Ampicillin Sodium 1 gm/ Sodium (Chloride) 50 mls @ 200 mls/hr IVPB Q6H [facility] Ondansetron HCl (Zofran Inj*) 4 mg IV Q6H PRN PRN Reason: NAUSEA Last Admin: 10/22/16 10:24 Dose: 4 mg Vital Signs 10/22/16 10/22/16 10/22/16 15:14 18:01 19:24 Temperature 98.0 F 100.7 F 103.0 F Pulse Rate 72 93 93 Respiratory 18 24 Rate Blood Pressure 106/54 133/65 124/58 (mmHg) O2 Sat by Pulse 98 97 98 Oximetry 10/22/16 10/22/16 10/22/16 20:00 21:53 23:23 Temperature 97.6 F Pulse Rate 62 Respiratory 16 16 16 Rate Blood Pressure 102/62 (mmHg) O2 Sat by Pulse 99 Oximetry 10/22/16 10/23/16 10/23/16 23:53 03:26 03:31 Temperature 97.3 F Pulse Rate 83 135 Respiratory 15 32 36 Rate Blood Pressure 140/45 109/76 (mmHg) O2 Sat by Pulse 97 Oximetry 10/23/16 10/23/16 10/23/16 07:18 07:25 12:00 Temperature 101.6 F 97.7 F Pulse Rate 81 68 Respiratory 18 18 14 Rate Blood Pressure 116/61 109/59 (mmHg) O2 Sat by Pulse 97 96 Oximetry 10/23/16 10/23/16 13:14 13:54 Temperature 97.4 F 97.9 F Pulse Rate 67 72 Respiratory 20 16 Rate Blood Pressure 120/59 126/70 (mmHg) O2 Sat by Pulse 100 99 Oximetry Oxygen Devices in Use Now: None Appearance: Male patient, lying in bed, NAD Eyes: PERRLA Ears/Nose/Mouth/Throat: Mucous Membranes Moist Neck: NL Appearance and Movements; NL JVP Respiratory: Symmetrical Chest Expansion and Respiratory Effort, Clear to Auscultation Cardiovascular: RRR - systolic murmur 1-2/6 Abdominal: NL Sounds; No Tenderness; No Distention Extremities: No Edema Neurological: Alert and Oriented x 3, NL Muscle Strength and Tone Lines/Tubes/Other Access: Clean, Dry and Intact Peripheral IV Nutrition: Taking PO's Result Diagrams: 10/23/16 05:24 10/23/16 05:24 Additional Lab and Data: Lab Results 10/21/16 10/21/16 Range/Units 18:05 18:05 WBC 11.1 H (3.5-10.8) 10^3/ul RBC 4.84 (4.0-5.4) 10^6/ul Hgb 14.7 (14.0-18.0) g/dl Hct 45 (42-52) % MCV 92 (80-94) fL MCH 30 (27-31) pg MCHC 33 (31-36) g/dl RDW 12 (10.5-15) % Plt Count 188 (150-450) 10^3/ul MPV 7 L (7.4-10.4) um3 Neut % (Auto) 78.6 (38-83) % Lymph % (Auto) 9.3 L (25-47) % [place] % (Auto) 11.4 H (1-9) % Eos % (Auto) 0.2 (0-6) % Baso % (Auto) 0.5 (0-2) % Absolute Neuts (auto) 8.7 H (1.5-7.7) 10^3/ul Absolute Lymphs (auto) 1.0 (1.0-4.8) 10^3/ul Absolute Monos (auto) 1.3 H (0-0.8) 10^3/ul Absolute Eos (auto) 0 (0-0.6) 10^3/ul Absolute Basos (auto) 0.1 (0-0.2) 10^3/ul Absolute Nucleated RBC 0 10^3/ul Nucleated RBC % 0 Sodium 129 L (133-145) mmol/L Potassium 4.4 (3.5-5.0) mmol/L Chloride 97 L (101-111) mmol/L Carbon Dioxide 24 (22-32) mmol/L Anion Gap 8 (2-11) mmol/L BUN 18 (6-24) mg/dL Creatinine 1.05 (0.67-1.17) mg/dL Est GFR ( Amer) 88.8 (>60) Est GFR (Non-Af Amer) 69.0 (>60) BUN/Creatinine Ratio 17.1 (8-20) Glucose 113 H (70-100) mg/dL Calcium 9.9 (8.6-10.3) mg/dL Total Bilirubin 2.40 H (0.2-1.0) mg/dL AST 18 (13-39) U/L ALT 18 (7-52) U/L Alkaline Phosphatase 65 (34-104) U/L C-Reactive Protein 63.28 H (< 5.00) mg/L Total Protein 7.5 (6.4-8.9) g/dL Albumin 4.5 (3.2-5.2) g/dL Globulin 3.0 (2-4) g/dL Albumin/Globulin Ratio 1.5 (1-3) Assess/Plan/Problems-Billing Assessment: Mr. Cox is a 76 yo male with a PMH of nephrolithiasis, HLD, bladder tumor, and hyperparathyroidism who presented to the ED on 10/21 with concern for fever/ chills following recent stent placement; patient admitted for urosepsis and found to have afib overnight that has since converted to sinus rhythm. - Patient Problems (1) Bacteremia due to Enterococcus Code(s): R78.81 - BACTEREMIA Comment: 4 out of 4 positive blood cultures for Enterococcus Repeat cultures drawn on 10/23 JAMIE today, as patient has new murmur and bacteremia Appreciate ID consult - continue ampicillin. Patient here in September 2016 with pyleonephritis thought to be secondary to infected stone - urine at that time also grew enterococcus. Recently seen by Dr. Mtz for stent and stone removal and new stent placement. (2) Sepsis Comment: Suspect urinary source. Patient meets sepsis criteria by SIRS with elevated temperature, tachycardia, and increased WBCs. Patient with positive blood cx in all 4 bottles, growing enterococcus Continue ampicillin, IVF (3) Atrial fibrillation Code(s): I48.91 - UNSPECIFIED ATRIAL FIBRILLATION Comment: Transient overnight 10/22, spontaneously converted back to SR No further episodes Patient denies any previous hx of afib, was asymptomatic during episode [id number] - discussed stroke risk with asymptomatic atrial fib Patient is very anxious about this and wishes to hold off on anticoagulants at this time. He would like to continue telemetry monitoring during this admission. Open to readdressing anticoagulation if repeat episodes. Recommend outpatient monitoring if no further episodes. (4) Nephrolithiasis Code(s): N20.0 - CALCULUS OF KIDNEY Comment: Hx of recurrent nephrolithiasis, s/p recent stent placement Renal US with concern for bilateral caliectasis vs parapelvic renal cysts - thought to be parapelvic cysts. Appreciate urology consult (5) HLD (hyperlipidemia) Code(s): E78.5 - HYPERLIPIDEMIA, UNSPECIFIED Comment: Continue atorvastatin (6) DVT prophylaxis Comment: SQ heparin Status and Disposition: OBV to inpatient admit. Anticipate extended LOS secondary to enterococcus bacteremia.
--- NOTE | 2016-10-23 16:28 | TEE ---
Patient: QUYEN EDUARDO [facility] Rec#: [id number] : 1940 Date: 10/23/2016 Age: 76y Height: 178 cm / 70.1 in Weight: 80 kg / 176.3 lbs Sex: M BSA: 1.98 Room#: 431 Admit Date#: 10/22/2016 Type: Inpatient Referring: Lou Piemntel Performing: Ana María Muñoz MD Reading: Ana María Muñoz MD Quality Assurance Monitor Body: Hollie Sumner RDCS,RDMS Nurse: Daniela Avery RN Transesophageal Echocardiogram Indication: Bacteremia BP: 116/61 HR: 80 Rhythm: NSR Findings History: HLD, parathyroidectomy, ureteral stent Technical Comments: The study quality is good. Left Ventricle: The left ventricular chamber size is normal. Mild concentric left ventricular hypertrophy is observed. Global left ventricular wall motion and contractility are within normal limits. The estimated ejection fraction is 55-60%. Normal left ventricular diastolic filling is observed. Left Atrium: The left atrial chamber size is normal. There is no thrombus visualized in the left atrial appendage. Right Ventricle: The right ventricular chamber size and systolic function are within normal limits. Right Atrium: The right atrial cavity size is normal. A prominent eustachian valve is noted in the right atrium. There is a patent foramen ovale with predominant [id number] shunting. A patent foramen ovale is demonstrated by agitated contrast. location not confirmed, but multiple bubbles noted in the left atrium c/w atrial or pulmonary shunt. There is evidence of an atrial septal aneurysm. Aortic Valve: The aortic valve is trileaflet. There is aortic annular calcification. There is a trace of aortic regurgitation. There is no evidence of aortic stenosis. There is no aortic vegetation present. Mitral Valve: The mitral valve leaflets appear normal. There is mild to moderate mitral regurgitation. There is no evidence of mitral stenosis. No vegetation is observed on the mitral valve. Tricuspid Valve: The tricuspid valve leaflets are normal. There is mild to moderate tricuspid regurgitation. There is evidence of mild pulmonary hypertension. No vegetation is observed on the tricuspid valve. Pulmonic Valve: The pulmonic valve appears normal. There is a trace pulmonic regurgitation. No vegetation is observed on the pulmonic valve. Pericardium: There is no significant pericardial effusion. Aorta: The aortic root appears normal. There is borderline dilatation of the ascending aorta. There is plaque visualized in the transverse aorta. There is plaque visualized in the descending aorta. Venous: The inferior vena cava appears normal. The flow pattern of the pulmonary veins appear normal. 3 out of 4 visualized The superior vena cava appears normal. JAMIE Procedures: All standard views were attempted within the limitations of patient tolerance and safety. History and physical as well as labs were reviewed. The patient was in a fasting state. Risks and benefits of the procedure, including alternatives, were discussed and written informed consent was obtained. The patient and/or their health care entry level sales representative expressed understanding of the procedure, risks and benefits. Baseline and continuous monitoring of blood pressure, heart rate, pulse oximetry and heart rhythm was performed throughout the procedure. The appropriate time-out procedure was performed as per [facility] protocol. The patient was placed in the left lateral decubitus position. The patient's posterior pharynx was anesthetized with 20ml of 2% viscous lidocaine. The patient received IV Midazolam with a total dose of 6 mg The patient received IV Fentanyl with a total dose of 50 mcg. An oral bite block was inserted for protection of oral dentition. The multiplane transesophageal echocardiogram probe was inserted through the posterior oropharynx and advanced into the esophagus without difficulty. Multiple 2D images were obtained of the heart and its related structures. Color flow Doppler was used for evaluation. Spectral Doppler was also used. The atrial septum was interrogated with color flow Doppler. At the conclusion of the procedure the probe was removed with continuous suction without complications. The patient tolerated the procedure with no apparent complications. Contrast: Intravenous agitated saline contrast was used to assess intracardiac shunting. Conclusions Mild concentric left ventricular hypertrophy is observed. Global left ventricular wall motion and contractility are within normal limits. The estimated ejection fraction is 55-60%. The right ventricular chamber size and systolic function are within normal limits. Cardio pulmonary shunt noted, specific location not identified, multiple bubbles noted in the left atrium with agitated saline injection c/w atrial or pulmonary shunt. There is aortic annular sclerosis with trace aortic regurgitation. There is mild to moderate mitral regurgitation. There is mild to moderate tricuspid regurgitation. There is a trace pulmonic regurgitation. No vegetations noted on any valve. There is evidence of mild pulmonary hypertension: 39 mmHg. Measurements Name Value Normal Range Aortic Annulus 2 cm (1.4 - 2.6) Ao root diameter (2D) 3.3 cm (2.1 - 3.5) Ascending Ao 3.5 cm (2.1 - 3.4) Name Value Normal Range MV E-wave Vmax 1 m/sec - MV deceleration time 183 msec - MV A-wave Vmax 0.7 m/sec - MV E:A ratio 1.5 ratio - P. vein S-wave Vmax 0.5 m/sec - P. vein D-wave Vmax 0.4 m/sec - P. vein S:D Vmax ratio 1.2 ratio - P. vein A-wave duration 74 msec - Name Value Normal Range TR Vmax 3 m/sec - TR peak gradient 36 mmHg - RAP 3 mmHg - RVSP 39 mmHg -
[2016-10-23] MEDS: Atorvastatin* 10 MG TAB PO SCH (17:14)
[2016-10-23] MEDS ORDERED: Metoprolol Tartrate IV* 1 MG/ML 5 ML VIAL IV ONE ×2 (17:23)
[2016-10-23] MEDS ORDERED: Acetaminophen TAB* 325 MG PO ONE (17:26)
[2016-10-23] MEDS ORDERED: Metoprolol Tartrate IV* 1 MG/ML 5 ML VIAL ONE (17:27)
[2016-10-23] MEDS ORDERED: Metoprolol Tartrate IV* 1 MG/ML 5 ML VIAL IV PRN ×2 (17:44→19:42)
[2016-10-23] MEDS: Rivaroxaban TAB(*) 20 MG TAB PO SCH (20:47)
[2016-10-23] MEDS: Metoprolol Tartrate TAB* 25 MG PO SCH (20:47)
[2016-10-23] MEDS: Potassium Chlor TAB* 10 MEQ TAB.ER PO SCH (20:49)
[2016-10-24] MEDS: Ampicillin ADVAN(*) 1 GM in NS 0.9% 50 ML* 50 ML IVPB SCH ×2 (03:36→08:40)
[2016-10-24] MEDS: Acetaminophen TAB* 325 MG PO PRN ×2 (03:47→19:44)
[2016-10-24 05:24] LABS: Anion Gap 6 mmol/L (2-11); BUN/Creatinine Ratio 17.6 (8-20); Blood Urea Nitrogen 16 mg/dL (6-24); CO2 Carbon Dioxide 20 mmol/L (22-32); Calcium 8.3 mg/dL (8.6-10.3); Chloride 108 mmol/L (101-111); EGFR African American 104.7 (>60); EGFR Non-African American 81.4 (>60); Glucose 118 mg/dL (70-100); Magnesium 1.7 mg/dL (1.9-2.7); Potassium 3.9 mmol/L (3.5-5.0); Sodium 134 mmol/L (133-145)
[2016-10-24] MEDS: NS 0.9% 1000 ML* 1,000 ML IV SCH (05:27)
[2016-10-24 05:35] LABS: TSH (Thyroid Stimulating Horm) 4.01 mcIU/mL (0.34-5.60)
[2016-10-24] MEDS: Rivaroxaban TAB(*) 20 MG TAB PO SCH (08:41)
[2016-10-24] MEDS: Potassium Chlor TAB* 10 MEQ TAB.ER PO SCH ×2 (08:41→21:23)
[2016-10-24] MEDS: Metoprolol Tartrate TAB* 25 MG PO SCH ×2 (08:41→21:23)
[2016-10-24] MEDS: Dronedarone TAB* 400 MG PO SCH ×2 (09:53→21:24)
[2016-10-24] MEDS ORDERED: Metoprolol Tartrate TAB* 25 MG PO ONE (09:53)
[2016-10-24 10:09] LABS: Total Iron Binding Capacity 175 mcg/dL (250-450); Transferrin 125 mg/dL (203-362)
[2016-10-24 10:11] LABS: Iron < 15 ug/dL (50-212)
[2016-10-24] MEDS: ALPRAZolam TAB* 0.5 MG PO PRN (12:03)
--- NOTE | 2016-10-24 12:54 | CONS ---
CARDIOLOGY EVALUATION: DATE OF CONSULT: 10/24/16 PATIENT OF: Dr. Mtz and Lou Pimentel NP REASON FOR EVALUATION: Atrial fibrillation. HISTORY OF PRESENT ILLNESS: This is a 76-year-old gentleman who was admitted with suspected UTI, I am asked to see him because of paroxysmal atrial fibrillation. Apparently the patient had a transient episode of atrial fibrillation overnight between October 21 and October 22. He spontaneously converted back to sinus rhythm. Because of his sepsis, he had a transesophageal echocardiogram performed on the . At that time, he was found to have an EF of 55% to 60%, normal LA size, patent foramen ovale with predominant right to left shunting. The foramen ovale was demonstrated by agitated contrast. 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 Trace AI. Mild to moderate MR. Mild to moderate TR. Mild pulmonary hypertension. Trace PI. He has continued to be treated for infection and actually had a temperature of 102.5 last night, 98.0 this morning. Last night, he developed atrial fibrillation with a heart rate in the 90s to 100s. He has been asymptomatic with that and continued it this morning. He denies any palpitations, syncope, near syncope, or exercise intolerance. He denies palpitations in the past. He said he did have fevers and chills before admission and an episode of what sounds like rigors 2 or 3 nights ago. He denies previous diagnosis of atrial fibrillation. He denies previous diagnosis of murmur, although he was told this admission that he had a murmur. He denies orthopnea, peripheral edema. No syncope, near syncope, strokes, mini strokes. He said he works out 6 to 7 days a week and did an elliptical for half an hour. He drinks 1 cup of coffee a day and 3 ounces of [employer] a day. PAST MEDICAL HISTORY: Includes hyperparathyroidism, status post resection 20 years ago. He denies hypertension, hyperlipidemia. He has a history of tobacco use, discontinued 50 years ago. Denies asthma, emphysema. He has history of nephrolithiasis, hyperparathyroidism and bladder tumor. He was admitted in September with nephrolithiasis and had a ureteral stent placed and was treated with Augmentin. The stent was removed on 10/26, but an old stent was removed earlier this month, but he has another stent still in place according to the patient. PAST SURGICAL HISTORY: Includes parathyroid resection and multiple cystoscopies. FAMILY HISTORY: His family history includes a twin brother who had bladder cancer. He has 5 other siblings. No premature coronary disease. The twin brother has bladder cancer and Graves' disease and his mother had a regular heartbeat, at 95. Father in his 90s of Alzheimer's and prostate cancer. 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 Exercise was regular and moderate 6 to 7 days a week, half hour on elliptical until admission. He is , has 1 daughter of 41. REVIEW OF SYSTEMS: Review of systems times 10 was negative except as above. PHYSICAL EXAM: GENERAL: He is a well-developed, well-nourished gentleman. No apparent distress. VITAL SIGNS: Pulse of 90s and regular. Blood pressure 119/71. NECK: No significant JVD. Carotids 2+. No cervical adenopathy. No thyromegaly. Extraocular muscles intact. Sclera anicteric. CARDIAC: S1, S2 with a 2/6 holosystolic murmur at the left lower sternal border and apex. Irregular. CHEST: Clear. No CVAT. ABDOMEN: Bowel sounds present. Nontender. EXTREMITIES: Femoral pulse intact with no bruits. Distal pulse intact. No edema. Motor strength 5/5 bilaterally. Deep tendon reflexes are 2/4. NEUROLOGIC: Alert and oriented x3. DIAGNOSTIC STUDIES/LAB DATA: EKG from October 23 revealed atrial fibrillation with a heart rate in the 130s and a right axis deviation. Nonspecific ST changes. EKG from 09/29 revealed a normal axis raising the possibility lead placement error on the most recent ekg; that EKG revealed normal sinus rhythm. No acute changes. I do not see a recent chest x-ray. Labs include white count 9.6, hemoglobin 11.5, hematocrit at 34, platelet count 123,000. Hematocrit is decreased from October 21, from 45 to 34 and his platelets count has gone from 188,000 to 123,000. Sodium 134, potassium 3.9. BUN is 16, creatinine of 0.91, glucose mildly elevated at 118, calcium low at 8.3, magnesium of 1.7 low. Total bili elevated at 2.4. C-reactive protein elevated at 63. TSH normal. Micro revealed blood cultures from 10/21/16, Enterococcus faecalis and same in the urine. IMPRESSION: Mr. Cox has paroxysmal atrial fibrillation in the setting of Enterococcus faecalis urinary tract infection and bacteremia. Based on the JAMIE , he does not appear to have endocarditis but does have mild to moderate mitral regurgitation and tricuspid regurgitation. He also has a history of tobacco use and alcohol use of moderate degree. He also reports daytime sleepiness and snoring, which raised possibility of sleep apnea. His atrial fibrillation appears to be asymptomatic and it is unclear whether this is a new phenomenon related to the current admission and stress or whether he has paroxysmal atrial fibrillation that is asymptomatic. His CHADs-VASc score is 1, approaching 2. Given his age is 76, almost 77, I discussed at length the implications of atrial fibrillation including the potential for symptoms related to poor rate control and cardioembolic events. I also explained the importance of evaluating for possible triggers and ruling out and evaluating for secondary causes. We also discussed the potential for cardioversion; however, given his lack of symptoms and the ongoing infection, it might be prudent to treat conversatively for now; we can reevaluate over the near term whether he has symptomatic atrial fibrillation or recurrent atrial fibrillation that requires more definitive treatment. PLAN/RECOMMENDATIONS: For the time being, I have recommended the followin. I suggest replacing his electrolytes, potassium and magnesium as needed. 2. Would follow for worsening anemia and thrombocytopenia, raised the possibility of bleeding. 3. He would continue treatment for his bacteremia and urinary tract infection as we are doing. 4. We will defer to Dr. Mtz and Dr. Rodarte concerning his ID treatment. 5. Would consider adding low dose of a beta tomeka to try to better control his heart rate. 6. We will consider adding Multaq 400 mg b.i.d. to try to facilitate the conversion and maintenance of sinus rhythm. I asked the patient to ambulate, see if he has any symptoms, his heart rate increased to 120 with minimal exertion. Therefore, adding a beta tomeka might be helpful with rate control. 7. We will defer on the cardioversion for now, but reconsider it if he is symptomatic in atrial fibrillation. 8. We will try to obtain overnight pulse oximetry, evaluate for sleep apnea. 9. I asked him to decrease his intake of alcohol and caffeine. Further recommendation will depend on his clinical course. [id number]/[facility] #: [id number] [facility]
--- NOTE | 2016-10-24 14:16 | PN ---
Subjective Date of Service: 10/24/16 Interval History: Mr. Cox states that he is feeling better overall, though he still feels "punky." He denies chest pain, SOB, nausea, or abdominal pain. Family History: Unchanged from Admission Social History: Unchanged from Admission Past Medical History: Unchanged from Admission Objective Active Medications: Acetaminophen (Tylenol Tab*) 650 mg PO Q4H PRN Alprazolam (Xanax Tab*) 0.5 mg PO Q6HR PRN Atorvastatin Calcium (Lipitor*) 10 mg PO 1700 KATH Calcium Carbonate (Tums*) 500 mg PO Q4H PRN Dronedarone (Multaq Tab*) 400 mg PO BID KATH Sodium Chloride (Ns 0.9% 1000 Ml*) 1,000 mls @ 100 mls/hr IV PER RATE KATH Ampicillin Sodium 2 gm/ Sodium (Chloride) 100 mls @ 200 mls/hr IVPB Q6H KATH Metoprolol Tartrate (Lopressor Tab*) 25 mg PO BID KATH Metoprolol Tartrate (Lopressor Iv*) 5 mg IV Q6H PRN Potassium Chloride (Klor Con Er Tab*) 10 meq PO BID KATH Rivaroxaban (Xarelto (*)) 20 mg PO DAILY [facility] Vital Signs 10/23/16 10/23/16 10/23/16 15:48 17:26 18:53 Temperature 98.2 F 104.5 F 102.9 F Pulse Rate 80 125 Respiratory 18 20 Rate Blood Pressure 129/70 150/84 (mmHg) O2 Sat by Pulse 99 99 Oximetry 10/23/16 10/23/16 10/24/16 19:14 20:00 00:17 Temperature 99.0 F 98.0 F Pulse Rate 93 94 Respiratory 16 16 20 Rate Blood Pressure 130/72 109/59 (mmHg) O2 Sat by Pulse 96 99 Oximetry 10/24/16 10/24/16 10/24/16 03:41 07:17 08:00 Temperature 102.5 F 98.0 F Pulse Rate 105 83 Respiratory 16 16 16 Rate Blood Pressure 134/69 119/71 (mmHg) O2 Sat by Pulse 98 98 Oximetry 10/24/16 10/24/16 11:26 12:03 Temperature 98.4 F Pulse Rate 76 Respiratory 16 17 Rate Blood Pressure 121/66 (mmHg) O2 Sat by Pulse 100 Oximetry Oxygen Devices in Use Now: None Appearance: Male lying in bed in NAD Eyes: No Scleral Icterus Ears/Nose/Mouth/Throat: Mucous Membranes Moist Neck: Trachea Midline Respiratory: Symmetrical Chest Expansion and Respiratory Effort, Clear to Auscultation Cardiovascular: NL Sounds; No Murmurs; No JVD, No Edema Abdominal: No Hepatosplenomegaly Lymphatic: No Cervical Adenopathy Extremities: No Edema Skin: No Rash or Ulcers Neurological: Alert and Oriented x 3, NL Muscle Strength and Tone Nutrition: Taking PO's Result Diagrams: 10/23/16 05:24 10/24/16 04:25 Additional Lab and Data: Lab Results 10/21/16 10/21/16 Range/Units 18:05 18:05 WBC 11.1 H (3.5-10.8) 10^3/ul RBC 4.84 (4.0-5.4) 10^6/ul Hgb 14.7 (14.0-18.0) g/dl Hct 45 (42-52) % MCV 92 (80-94) fL MCH 30 (27-31) pg MCHC 33 (31-36) g/dl RDW 12 (10.5-15) % Plt Count 188 (150-450) 10^3/ul MPV 7 L (7.4-10.4) um3 Neut % (Auto) 78.6 (38-83) % Lymph % (Auto) 9.3 L (25-47) % [place] % (Auto) 11.4 H (1-9) % Eos % (Auto) 0.2 (0-6) % Baso % (Auto) 0.5 (0-2) % Absolute Neuts (auto) 8.7 H (1.5-7.7) 10^3/ul Absolute Lymphs (auto) 1.0 (1.0-4.8) 10^3/ul Absolute Monos (auto) 1.3 H (0-0.8) 10^3/ul Absolute Eos (auto) 0 (0-0.6) 10^3/ul Absolute Basos (auto) 0.1 (0-0.2) 10^3/ul Absolute Nucleated RBC 0 10^3/ul Nucleated RBC % 0 Sodium 129 L (133-145) mmol/L Potassium 4.4 (3.5-5.0) mmol/L Chloride 97 L (101-111) mmol/L Carbon Dioxide 24 (22-32) mmol/L Anion Gap 8 (2-11) mmol/L BUN 18 (6-24) mg/dL Creatinine 1.05 (0.67-1.17) mg/dL Est GFR ( Amer) 88.8 (>60) Est GFR (Non-Af Amer) 69.0 (>60) BUN/Creatinine Ratio 17.1 (8-20) Glucose 113 H (70-100) mg/dL Calcium 9.9 (8.6-10.3) mg/dL Total Bilirubin 2.40 H (0.2-1.0) mg/dL AST 18 (13-39) U/L ALT 18 (7-52) U/L Alkaline Phosphatase 65 (34-104) U/L C-Reactive Protein 63.28 H (< 5.00) mg/L Total Protein 7.5 (6.4-8.9) g/dL Albumin 4.5 (3.2-5.2) g/dL Globulin 3.0 (2-4) g/dL Albumin/Globulin Ratio 1.5 (1-3) Microbiology and Other Data: Microbiology 10/23/16 05:23 Aerobic Blood Culture - Preliminary Blood Line No Growth Day 1 Anaerobic Blood Culture - Preliminary No Growth Day 1 Assess/Plan/Problems-Billing Assessment: Mr. Cox is a 76 yo male with a PMH of nephrolithiasis, HLD, bladder tumor, and hyperparathyroidism who presented to the ED on 10/21 with concern for fever/ chills following recent stent placement; patient admitted for urosepsis and afib. - Patient Problems (1) Bacteremia due to Enterococcus Comment: Temp 102.5 early this AM. 4 out of 4 positive blood cultures for Enterococcus. Repeat cultures drawn on 10/23TEE did not show any vegetations. Appreciate ID consult - continue ampicillin. Patient here in September 2016 with pyleonephritis thought to be secondary to infected stone - urine at that time also grew enterococcus. ? if patient had underlying prostatitis which then seeded the stent and stone during the procedure. Ureteral stent needs to be removed, as is seeded with bacteria at this point, anticipate removal tomorrow. (2) Anemia Comment: Iron deficiency. No report of dark tarry stool, stool occult blood pending. ? if anemia is related to blood draws, dilution from IVF and sepsis. Start ferrous sulfate supplementation. (3) Sepsis Comment: Urinary source. Patient meets sepsis criteria by SIRS with elevated temperature, tachycardia, and increased WBCs. Patient with positive blood cx in all 4 bottles, growing enterococcus. Continue ampicillin. (4) Atrial fibrillation Comment: Repeat episode of afib, asymptomatic. Appreciate cardiology consult. No cardioversion planned as patient is asymptomatic. Plan for metoprolol with multaq and xarelto for anticoagulation. Patient advised to moderate alcohol and caffeine intake. Magnesium and potassium repleted. (5) HLD (hyperlipidemia) Comment: Continue atorvastatin (6) DVT prophylaxis Comment: SQ heparin (7) Full code status Status and Disposition: Inpatient. Anticipate extended LOS secondary to enterococcus bacteremia.
--- NOTE | 2016-10-24 17:21 | PN ---
Progress Note - Progress Note SOAP: Subjective: DOS: 10/24/16 CC: fever HPI: 76 yo man with left ureteral stent admitted with fever and rigors; E. fecalis bacteremia. Fever overnight but overall feeling better with no further rigors and energy improving. No rash or diarrhea. Objective: [] Vital Signs Temp 37.7 C 10/24/16 15:25 Pulse 86 10/24/16 15:25 Resp 17 10/24/16 15:25 BP 118/70 10/24/16 15:25 Pulse Ox 96 10/24/16 15:25 Intake & Output 10/23/16 10/24/16 10/24/16 18:59 06:59 18:59 Intake Total 990 1358 1508 Output Total 540 1050 250 Balance 026 237 7768 Intake: IV Fluids 650 1247 534 NS (0.9%) 650 1247 534 IVPB 110 111 174 ABX - AMPICILLIN 111 ABX - ZOSYN 110 NS (0.9%) 174 Medicated IV 50 Ampicillin 50 Oral 180 0 800 Output: Urine 540 1050 250 Other: # Bowel Movements 0 # Voids 0 Gen:awake, drowsy, no distress HEENT:PERRL, MMM Neck:supple Heart: regular, 2/6 systolic murmur Lungs:CTA BL Abd:+BS NTND soft Skin: no rash MSK: no joint synovitis Laboratory Results - last 24 hr 10/24/16 04:25 Sodium 134 Potassium 3.9 Chloride 108 Carbon Dioxide 20 L Anion Gap 6 BUN 16 Creatinine 0.91 Est GFR ( Amer) 104.7 Est GFR (Non-Af Amer) 81.4 BUN/Creatinine Ratio 17.6 Glucose 118 H Calcium 8.3 L Magnesium 1.7 L Iron < 15 L TIBC 175 L % Saturation 9 L Unsat Iron Binding 160.50608 TSH 4.01 Microbiology 10/21/16 20:27 Urine Culture - Final Urine Enterococcus Faecalis 10/21/16 22:15 Aerobic Blood Culture - Final Blood Venous Enterococcus Faecalis Anaerobic Blood Culture - Final Enterococcus Faecalis Blood Culture - Final 10/21/16 22:00 Aerobic Blood Culture - Final Blood Venous Enterococcus Faecalis Anaerobic Blood Culture - Final Enterococcus Faecalis Blood Culture - Final 10/23/16 05:23 Aerobic Blood Culture - Preliminary Blood Line No Growth Day 1 Anaerobic Blood Culture - Preliminary No Growth Day 1 Assessment: 1. sepsis, present on admission 2. E.fecalis bacteremia due to urinary tract infection; prostatitis and pyelonephritis, with stent involvement. JAMIE showed no vegetation. 3. nephrolithiasis with left ureteral stent 4. new onset atrial fibrillation Plan 1. ampicillin 2 gm IV Q6hrs, 7 days from negative BC, then care home PO abx for prostatitis 2. Dr Mtz to exchange stent 35 minutes floor time >50% face to face with patient and brother in counseling regarding next stesp for diagnosis and treatment of his infection.
[2016-10-24] MEDS: Atorvastatin* 10 MG TAB PO SCH (17:24)
[2016-10-24 18:58] LABS: Ferritin 728.2 ng/mL (24-336)
[2016-10-24] MEDS: [UNRECOGNIZED DRUG - OTHER] PO SCH (21:22)
[2016-10-24] MEDS: PROBIOTIC PO SCH (21:22)
[2016-10-25 06:14] LABS: Hematocrit 34 % (42-52); Hemoglobin 11.7 g/dl (14.0-18.0); Mean Corpuscular HGB Conc 34 g/dl (31-36); Mean Corpuscular Hemoglobin 31 pg (27-31); Mean Corpuscular Volume 91 fL (80-94); Mean Platelet Volume 8 um3 (7.4-10.4); Red Blood Count 3.78 10^6/ul (4.0-5.4); Red Cell Distribution Width 13 % (10.5-15); White Blood Count 8.5 10^3/ul (3.5-10.8)
[2016-10-25 06:36] LABS: BUN/Creatinine Ratio 14.6 (8-20); Calcium 8.6 mg/dL (8.6-10.3); EGFR African American 107.5 (>60); EGFR Non-African American 83.6 (>60); Potassium 3.9 mmol/L (3.5-5.0)
[2016-10-25 07:15] LABS: Erythrocyte Sed Rate 79 mm/Hr (0-40)
[2016-10-25] MEDS: Rivaroxaban TAB(*) 20 MG TAB PO SCH (08:03)
[2016-10-25] MEDS: Dronedarone TAB* 400 MG PO SCH ×2 (08:03→20:22)
[2016-10-25] MEDS: Metoprolol Tartrate TAB* 25 MG PO SCH ×2 (08:03→20:18)
[2016-10-25] MEDS: Potassium Chlor TAB* 10 MEQ TAB.ER PO SCH ×2 (08:03→20:20)
[2016-10-25] MEDS: Ferrous Sulfate TAB* 325 MG PO SCH (08:03)
[2016-10-25] MEDS ORDERED: Naloxone* 0.4 MG/ML 1 ML VIAL ONE (08:51)
[2016-10-25] MEDS ORDERED: Midazolam* 1 MG/ML 5 ML VIAL (5 MG) ONE (08:51)
[2016-10-25] MEDS ORDERED: fentaNYL* 50 MCG/ML 2 ML VIAL (100 MCG VIAL) ONE (08:51)
[2016-10-25] MEDS ORDERED: Flumazenil* 0.1 MG/ML 5 ML MDV ONE (08:52)
[2016-10-25] MEDS ORDERED: Potassium Chloride LIQUID* 20 MEQ PACKET PO ONE (09:26)
[2016-10-25] MEDS ORDERED: Lidocaine 2% JELLY* 6 ML JELLY TOPICAL ONE ×2 (10:08→12:08)
--- NOTE | 2016-10-25 14:58 | PN ---
Subjective Date of Service: 10/25/16 Interval History: Mr. Cox denies any complaint today. He denies chest pain, SOB, nausea, or abdominal pain. Family History: Unchanged from Admission Social History: Unchanged from Admission Past Medical History: Unchanged from Admission Objective Active Medications: Acetaminophen (Tylenol Tab*) 650 mg PO Q4H PRN Alprazolam (Xanax Tab*) 0.5 mg PO Q6HR PRN Atorvastatin Calcium (Lipitor*) 10 mg PO 1700 KATH Calcium Carbonate (Tums*) 500 mg PO Q4H PRN Dronedarone (Multaq Tab*) 400 mg PO BID KATH Ferrous Sulfate (Ferrous Sulfate Tab*) 325 mg PO DAILY [facility] Ampicillin Sodium 2 gm/ Sodium (Chloride) 100 mls @ 200 mls/hr IVPB Q6H KATH Metoprolol Tartrate (Lopressor Tab*) 25 mg PO BID KATH Metoprolol Tartrate (Lopressor Iv*) 5 mg IV Q6H PRN Pto: Probiotic/ (Prebiotic Supplement) 1 admin PO 2100 [facility] Potassium Chloride (Klor Con Er Tab*) 10 meq PO BID [facility] Rivaroxaban (Xarelto (*)) 20 mg PO DAILY [facility] Vital Signs 10/24/16 10/24/16 10/24/16 15:25 19:15 20:00 Temperature 99.8 F 98.7 F Pulse Rate 86 90 Respiratory 17 17 18 Rate Blood Pressure 118/70 122/74 (mmHg) O2 Sat by Pulse 96 96 Oximetry 10/25/16 10/25/16 10/25/16 00:20 03:35 05:45 Temperature 97.7 F 98.2 F Pulse Rate 79 89 Respiratory 16 16 Rate Blood Pressure 118/69 120/77 (mmHg) O2 Sat by Pulse 98 99 95 Oximetry 10/25/16 10/25/16 10/25/16 07:34 08:00 10:45 Temperature 98.9 F 98.6 F Pulse Rate 98 67 Respiratory 16 16 20 Rate Blood Pressure 130/75 113/69 (mmHg) O2 Sat by Pulse 98 97 Oximetry 10/25/16 10/25/16 13:30 13:40 Temperature 97.8 F Pulse Rate 73 69 Respiratory 16 Rate Blood Pressure 130/85 116/73 (mmHg) O2 Sat by Pulse 98 99 Oximetry Oxygen Devices in Use Now: None Appearance: Male lying in bed in NAD Eyes: No Scleral Icterus Ears/Nose/Mouth/Throat: Mucous Membranes Moist Neck: Trachea Midline Respiratory: Symmetrical Chest Expansion and Respiratory Effort, Clear to Auscultation Cardiovascular: NL Sounds; No Murmurs; No JVD, No Edema Abdominal: NL Sounds; No Tenderness; No Distention Lymphatic: No Cervical Adenopathy Extremities: No Edema Skin: No Rash or Ulcers Neurological: Alert and Oriented x 3, NL Muscle Strength and Tone Nutrition: Taking PO's Result Diagrams: 10/25/16 05:39 10/25/16 05:39 Additional Lab and Data: Lab Results 10/21/16 10/21/16 Range/Units 18:05 18:05 WBC 11.1 H (3.5-10.8) 10^3/ul RBC 4.84 (4.0-5.4) 10^6/ul Hgb 14.7 (14.0-18.0) g/dl Hct 45 (42-52) % MCV 92 (80-94) fL MCH 30 (27-31) pg MCHC 33 (31-36) g/dl RDW 12 (10.5-15) % Plt Count 188 (150-450) 10^3/ul MPV 7 L (7.4-10.4) um3 Neut % (Auto) 78.6 (38-83) % Lymph % (Auto) 9.3 L (25-47) % [place] % (Auto) 11.4 H (1-9) % Eos % (Auto) 0.2 (0-6) % Baso % (Auto) 0.5 (0-2) % Absolute Neuts (auto) 8.7 H (1.5-7.7) 10^3/ul Absolute Lymphs (auto) 1.0 (1.0-4.8) 10^3/ul Absolute Monos (auto) 1.3 H (0-0.8) 10^3/ul Absolute Eos (auto) 0 (0-0.6) 10^3/ul Absolute Basos (auto) 0.1 (0-0.2) 10^3/ul Absolute Nucleated RBC 0 10^3/ul Nucleated RBC % 0 Sodium 129 L (133-145) mmol/L Potassium 4.4 (3.5-5.0) mmol/L Chloride 97 L (101-111) mmol/L Carbon Dioxide 24 (22-32) mmol/L Anion Gap 8 (2-11) mmol/L BUN 18 (6-24) mg/dL Creatinine 1.05 (0.67-1.17) mg/dL Est GFR ( Amer) 88.8 (>60) Est GFR (Non-Af Amer) 69.0 (>60) BUN/Creatinine Ratio 17.1 (8-20) Glucose 113 H (70-100) mg/dL Calcium 9.9 (8.6-10.3) mg/dL Total Bilirubin 2.40 H (0.2-1.0) mg/dL AST 18 (13-39) U/L ALT 18 (7-52) U/L Alkaline Phosphatase 65 (34-104) U/L C-Reactive Protein 63.28 H (< 5.00) mg/L Total Protein 7.5 (6.4-8.9) g/dL Albumin 4.5 (3.2-5.2) g/dL Globulin 3.0 (2-4) g/dL Albumin/Globulin Ratio 1.5 (1-3) Microbiology and Other Data: Microbiology 10/23/16 05:23 Aerobic Blood Culture - Preliminary Blood Line No Growth Day 1 Anaerobic Blood Culture - Preliminary No Growth Day 1 Assess/Plan/Problems-Billing Assessment: Mr. Cox is a 76 yo male with a PMH of nephrolithiasis, HLD, bladder tumor, and hyperparathyroidism who presented to the ED on 10/21 with concern for fever/ chills following recent stent placement; patient admitted for urosepsis and afib. - Patient Problems (1) Bacteremia due to Enterococcus Comment: Afebrile last 24 hours. 4 out of 4 positive blood cultures for Enterococcus. Repeat cultures drawn on 10/23 have been negative. JAMIE did not show any vegetations. Appreciate ID consult - continue ampicillin. Patient here in September 2016 with pyleonephritis thought to be secondary to infected stone - urine at that time also grew enterococcus. ? if patient had underlying prostatitis which then seeded the stent and stone during the procedure. Ureteral stent removed today. (2) Anemia Comment: Iron deficiency. No report of dark tarry stool, but stool occult blood is positive. Patient reports negative colonoscopy approximately 1 year ago. ? if anemia is related to blood draws, dilution from IVF and sepsis. Start ferrous sulfate supplementation. Patient to follow up with GI for consideration of outpatient upper and lower endoscopy given the need for xarelto for anticoagulation. (3) Sepsis Comment: Resolved. Urinary source. (4) Atrial fibrillation Comment: Appreciate cardiology consult, Dr. Wright performed cardioversion this AM, now in SR. Plan for metoprolol with multaq and xarelto for anticoagulation. Patient advised to moderate alcohol and caffeine intake. Magnesium and potassium repleted. (5) HLD (hyperlipidemia) Comment: Continue atorvastatin (6) DVT prophylaxis Comment: SQ heparin (7) Full code status Status and Disposition: Inpatient. Anticipate extended LOS secondary to enterococcus bacteremia.
--- NOTE | 2016-10-25 17:09 | PN ---
Progress Note - Progress Note SOAP: Subjective: DOS: 10/25/16 CC: fever HPI: 76 yo man with left ureteral stent admitted with fever and rigors; E. fecalis bacteremia. Fever resolved, no rash or diarrhea. Eating well. Has hematuria. Ureteral stent removed today. Objective: [] Vital Signs Temp 36.7 C 10/25/16 15:22 Pulse 75 10/25/16 15:22 Resp 16 10/25/16 13:40 BP 100/62 10/25/16 15:22 Pulse Ox 99 10/25/16 15:22 Intake & Output 10/24/16 10/25/16 10/25/16 18:59 06:59 18:59 Intake Total 1508 1109 254 Output Total 250 1300 600 Balance 1258 -191 -346 Intake: IV Fluids 534 499 30 ABX - AMPICILLIN 15 NS (0.9%) 534 484 30 IVPB 174 210 224 ABX - AMPICILLIN 210 NS (0.9%) 174 224 Oral 800 400 0 Output: Urine 250 1300 600 Other: # Bowel Movements 0 # Voids 0 Gen:awake, drowsy, no distress HEENT:PERRL, MMM Neck:supple Heart: regular, 2/6 systolic murmur Lungs:CTA BL Abd:+BS NTND soft Skin: no rash MSK: no joint synovitis Microbiology 10/25/16 11:05 Stool Occult Blood ([facility]) - Final Stool 10/23/16 05:23 Aerobic Blood Culture - Preliminary Blood Line No Growth Day 2 Anaerobic Blood Culture - Preliminary No Growth Day 2 Blood Culture - Final Laboratory Results - last 24 hr 10/24/16 10/25/16 10/25/16 04:25 05:39 05:39 WBC 8.5 RBC 3.78 L Hgb 11.7 L Hct 34 L MCV 91 MCH 31 MCHC 34 RDW 13 Plt Count 137 L MPV 8 Neut % (Auto) 77.5 Lymph % (Auto) 11.2 L [place] % (Auto) 8.5 Eos % (Auto) 1.8 Baso % (Auto) 1.0 Absolute Neuts (auto) 6.6 Absolute Lymphs (auto) 1.0 Absolute Monos (auto) 0.7 Absolute Eos (auto) 0.2 Absolute Basos (auto) 0.1 Absolute Nucleated RBC 0 Nucleated RBC % 0 ESR 79 H Sodium 138 Potassium 3.9 Chloride 106 Carbon Dioxide 23 Anion Gap 9 BUN 13 Creatinine 0.89 Est GFR ( Amer) 107.5 Est GFR (Non-Af Amer) 83.6 BUN/Creatinine Ratio 14.6 Glucose 107 H Calcium 8.6 Magnesium 2.0 Ferritin 728.2 H C-React Prot High Sens 182.88 Assessment: 1. sepsis, present on admission, resolved 2. E.fecalis bacteremia due to urinary tract infection; prostatitis and pyelonephritis, with stent involvement. JAMIE showed no vegetation. Stent removed. 3. nephrolithiasis 4. new onset atrial fibrillation 5. anemia, evaluation pending Plan 1. ampicillin 2 gm IV Q6hrs. Outpatient treatment options are a PICC or midline with amp 8 gm/24hrs IV by continuous infusion or peripheral IV with daptomycin 500 mg IV Q24hrs at infusion center, last dose 10/30 in each case. To be followed by augmentin 500 mg po bid x21 days to cover prostatitis (can't use FQ with dronedarone). Case discussed with Aleah Rodriguez NP 35 minutes floor time >50% face to face with patient and brother in counseling regarding next steps for diagnosis and treatment of his infection. All questions answered.
[2016-10-25] MEDS: Atorvastatin* 10 MG TAB PO SCH (17:25)
[2016-10-25] MEDS: ALPRAZolam TAB* 0.5 MG PO PRN (20:18)
[2016-10-25] MEDS: [UNRECOGNIZED DRUG - OTHER] PO SCH (20:21)
[2016-10-25] MEDS: PROBIOTIC PO SCH (20:21)
--- NOTE | 2016-10-25 22:12 | OP ---
DATE OF OPERATION: 10/25/16 - ROOM #431 DATE OF : 44 SURGEON: Haim Mtz MD ANESTHESIA: Local. PRE-OP DIAGNOSES: 1. Left ureteral ureteral stent. 2. Status post left ureteroscopy and laser lithotripsy. POST-OP DIAGNOSIS: OPERATIVE PROCEDURES: 1. Flexible cystoscopy. 2. Removal of left ureteral stent. INDICATION FOR PROCEDURE: Mr. Cox is 76-year-old white male who had a left ureteroscopy, laser lithotripsy and left ureteral stent exchange 9 days ago. He has been in the hospital because of urosepsis and has been on IV antibiotics with resolution of his sepsis. The patient is now taken to the OR for stent removal. DESCRIPTION OF PROCEDURE: With the patient in the supine position, Xylocaine jelly was instilled into the urethra. Flexible cystoscopy was performed. The stent was grasped and was pulled out intact. The patient tolerated the procedure well. The plan is to observe for possible colic or infection. I will see the patient back in another month for followup with renal ultrasound. [id number]/[facility] #: [id number] [facility]
[2016-10-26] MEDS: Acetaminophen TAB* 325 MG PO PRN (06:06)
[2016-10-26 07:34] VITALS: BP 122/70
[2016-10-26] MEDS: Rivaroxaban TAB(*) 20 MG TAB PO SCH (08:31)
[2016-10-26] MEDS: Ferrous Sulfate TAB* 325 MG PO SCH (08:31)
[2016-10-26] MEDS: Metoprolol Tartrate TAB* 25 MG PO SCH (08:31)
[2016-10-26] MEDS: Dronedarone TAB* 400 MG PO SCH (08:31)
[2016-10-26] MEDS: Potassium Chlor TAB* 10 MEQ TAB.ER PO SCH (08:31)
--- NOTE | 2016-10-26 09:52 | PN ---
Subjective Date of Service: 10/26/16 Interval History: Mr. Cox denies complaint today. He has had no fever or chills. He denies chest pain, SOB, nausea, or abdominal pain. Family History: Unchanged from Admission Social History: Unchanged from Admission Past Medical History: Unchanged from Admission Objective Active Medications: Acetaminophen (Tylenol Tab*) 650 mg PO Q4H PRN Alprazolam (Xanax Tab*) 0.5 mg PO Q6HR PRN Atorvastatin Calcium (Lipitor*) 10 mg PO 1700 KATH Calcium Carbonate (Tums*) 500 mg PO Q4H PRN Dronedarone (Multaq Tab*) 400 mg PO BID KATH Ferrous Sulfate (Ferrous Sulfate Tab*) 325 mg PO DAILY KATH Heparin Sodium (Porcine) (Heparin Flush Picc/Ml/Cvc(*)) 0 ml FLUSH 0600,1800 KATH Ampicillin Sodium 2 gm/ Sodium (Chloride) 100 mls @ 200 mls/hr IVPB Q6H KATH Metoprolol Tartrate (Lopressor Tab*) 25 mg PO BID KATH Metoprolol Tartrate (Lopressor Iv*) 5 mg IV Q6H PRN Pto: Probiotic/ (Prebiotic Supplement) 1 admin PO 2100 [facility] Potassium Chloride (Klor Con Er Tab*) 10 meq PO BID KATH Rivaroxaban (Xarelto (*)) 20 mg PO DAILY [facility] Vital Signs 10/25/16 10/25/16 10/25/16 10:45 13:30 13:40 Temperature 98.6 F 97.8 F Pulse Rate 67 73 69 Respiratory 20 16 Rate Blood Pressure 113/69 130/85 116/73 (mmHg) O2 Sat by Pulse 97 98 99 Oximetry 10/25/16 10/25/16 10/25/16 15:22 19:23 20:00 Temperature 98.1 F 98.0 F Pulse Rate 75 74 Respiratory 17 17 Rate Blood Pressure 100/62 115/68 (mmHg) O2 Sat by Pulse 99 97 Oximetry 10/25/16 10/25/16 10/25/16 20:18 22:18 23:20 Temperature 98.6 F Pulse Rate 71 Respiratory 18 17 20 Rate Blood Pressure 122/73 (mmHg) O2 Sat by Pulse 97 Oximetry 10/26/16 10/26/16 10/26/16 03:09 07:09 07:34 Temperature 98.7 F 97.3 F Pulse Rate 73 68 Respiratory 16 16 18 Rate Blood Pressure 121/71 122/70 (mmHg) O2 Sat by Pulse 97 99 Oximetry Oxygen Devices in Use Now: None Appearance: Male lying in bed in NAD Eyes: No Scleral Icterus Ears/Nose/Mouth/Throat: NL Teeth, Lips, Gums Neck: Trachea Midline Respiratory: Symmetrical Chest Expansion and Respiratory Effort, Clear to Auscultation Cardiovascular: NL Sounds; No Murmurs; No JVD, No Edema Abdominal: NL Sounds; No Tenderness; No Distention Lymphatic: No Cervical Adenopathy Extremities: No Edema Skin: No Rash or Ulcers Neurological: Alert and Oriented x 3, NL Muscle Strength and Tone Nutrition: Taking PO's Result Diagrams: 10/25/16 05:39 10/25/16 05:39 Additional Lab and Data: Lab Results 10/21/16 10/21/16 Range/Units 18:05 18:05 WBC 11.1 H (3.5-10.8) 10^3/ul RBC 4.84 (4.0-5.4) 10^6/ul Hgb 14.7 (14.0-18.0) g/dl Hct 45 (42-52) % MCV 92 (80-94) fL MCH 30 (27-31) pg MCHC 33 (31-36) g/dl RDW 12 (10.5-15) % Plt Count 188 (150-450) 10^3/ul MPV 7 L (7.4-10.4) um3 Neut % (Auto) 78.6 (38-83) % Lymph % (Auto) 9.3 L (25-47) % Boundary % (Auto) 11.4 H (1-9) % Eos % (Auto) 0.2 (0-6) % Baso % (Auto) 0.5 (0-2) % Absolute Neuts (auto) 8.7 H (1.5-7.7) 10^3/ul Absolute Lymphs (auto) 1.0 (1.0-4.8) 10^3/ul Absolute Monos (auto) 1.3 H (0-0.8) 10^3/ul Absolute Eos (auto) 0 (0-0.6) 10^3/ul Absolute Basos (auto) 0.1 (0-0.2) 10^3/ul Absolute Nucleated RBC 0 10^3/ul Nucleated RBC % 0 Sodium 129 L (133-145) mmol/L Potassium 4.4 (3.5-5.0) mmol/L Chloride 97 L (101-111) mmol/L Carbon Dioxide 24 (22-32) mmol/L Anion Gap 8 (2-11) mmol/L BUN 18 (6-24) mg/dL Creatinine 1.05 (0.67-1.17) mg/dL Est GFR ( Amer) 88.8 (>60) Est GFR (Non-Af Amer) 69.0 (>60) BUN/Creatinine Ratio 17.1 (8-20) Glucose 113 H (70-100) mg/dL Calcium 9.9 (8.6-10.3) mg/dL Total Bilirubin 2.40 H (0.2-1.0) mg/dL AST 18 (13-39) U/L ALT 18 (7-52) U/L Alkaline Phosphatase 65 (34-104) U/L C-Reactive Protein 63.28 H (< 5.00) mg/L Total Protein 7.5 (6.4-8.9) g/dL Albumin 4.5 (3.2-5.2) g/dL Globulin 3.0 (2-4) g/dL Albumin/Globulin Ratio 1.5 (1-3) Microbiology and Other Data: Microbiology 10/23/16 05:23 Aerobic Blood Culture - Preliminary Blood Line No Growth Day 1 Anaerobic Blood Culture - Preliminary No Growth Day 1 Assess/Plan/Problems-Billing Assessment: Mr. Cox is a 76 yo male with a PMH of nephrolithiasis, HLD, bladder tumor, and hyperparathyroidism who presented to the ED on 10/21 with concern for fever/ chills following recent stent placement; patient admitted for urosepsis and afib. - Patient Problems (1) Bacteremia due to Enterococcus Comment: Remains afebrile. 4 out of 4 positive blood cultures for Enterococcus. Repeat cultures drawn on 10/23 have been negative. JAMIE did not show any vegetations. Appreciate ID consult - continue ampicillin or daptomycin until 10/30/16 followed by augmentin for 21 days. Patient here in September 2016 with pyleonephritis thought to be secondary to infected stone - urine at that time also grew enterococcus. ? if patient had underlying prostatitis which then seeded the stent and stone during the procedure. Ureteral stent removed today. (2) Anemia Comment: Iron deficiency. No report of dark tarry stool, but stool occult blood is positive. Patient reports negative colonoscopy approximately 1 year ago. ? if anemia is related to blood draws, dilution from IVF and sepsis. Start ferrous sulfate supplementation. Patient to follow up with GI for consideration of outpatient upper and lower endoscopy given the need for xarelto for anticoagulation. (3) Sepsis Comment: Resolved. Urinary source. (4) Atrial fibrillation Comment: Appreciate cardiology consult, Dr. Wright performed cardioversion, now in SR. Plan for metoprolol with multaq and xarelto for anticoagulation. Patient advised to moderate alcohol and caffeine intake. Magnesium and potassium repleted. (5) HLD (hyperlipidemia) Comment: Continue atorvastatin (6) DVT prophylaxis Comment: SQ heparin (7) Full code status Status and Disposition: Inpatient. Anticipate extended LOS secondary to enterococcus bacteremia.
--- NOTE | 2016-10-26 11:33 | PN ---
Progress Note - Progress Note Note: Patient has remained stable after removal of his urinary stent yesterday. Patient will return to the ED tomorrow for one time infusion of daptomycin IV and then return Friday for daily infusions at the Infusion [facility] through .
--- NOTE | 2016-10-26 18:15 | DS ---
CC: Dr. Jones; Dr. Mtz; Dr. Rodarte; Dr. Wright * DISCHARGE SUMMARY: DATE OF ADMISSION: 10/21/16 DATE OF DISCHARGE: 10/26/16 PRIMARY CARE PHYSICIAN: Dr. Jones. ATTENDING PHYSICIAN: Dr. Natalia Mack * (dictation provided by Aleah Rodriguez NP ). PRIMARY DIAGNOSES: 1. Sepsis. 2. Prostatitis. 3. Infected kidney stone. 4. Ureteral stent, status post removal. 5. Atrial fibrillation. 6. Iron deficiency anemia. SECONDARY DIAGNOSES: 1. Nephrolithiasis. 2. Hyperlipidemia. 3. Hyperparathyroidism. 4. History of bladder tumor. 5. History of parathyroidectomy. 6. History of multiple cystoscopies with ureteral stenting secondary to kidney stone. MEDICATIONS AT THE TIME OF DISCHARGE: 1. Alprazolam 0.5 mg p.o. q.6 hours p.r.n. 2. Daptomycin 500 mg IV daily through 10/30/16. 3. Augmentin 875 mg p.o. b.i.d. x21 days, to start on 10/31/16. 4. Atorvastatin 10 mg p.o. daily. 5. Dronedarone 400 mg p.o. b.i.d. 6. Ferrous sulfate 325 mg p.o. daily. 7. Metoprolol tartrate 25 mg p.o. b.i.d. 8. Potassium chloride 10 mEq p.o. b.i.d. 9. Rivaroxaban 20 mg p.o. daily. HOSPITAL COURSE: Mr. Cox is a 76-year-old male with a past medical history of kidney stones with ureteral stenting in the past, who presented to the hospital on 10/21/16 with concern for fever, aches, malaise, and myalgia. Please see the dictated H and P from Goran Abdi, Nurse Practitioner, for complete details. In brief, the patient had been in the hospital in September for nephrolithiasis with UTI and a ureteral stent was placed. The patient completed a course of Augmentin and followed closely with Dr. Mtz. Over the past 24 hours prior to admission, the patient developed fever, generalized aches and fatigue, therefore came to the emergency room. In the emergency room , the patient's white blood cell count was only 11.1, he had a fever up to 101.9 , had 3+ leukocyte esterase, and his urine was concerning for infection. Mr. Cox was admitted to the hospital. He had urine culture which grew Enterococcus faecalis. All 4 blood culture bottles also grew Enterococcus faecalis. Due to his bacteremia, he did receive a transesophageal echocardiogram, which did not show any vegetations and was summarized as follows "global left ventricular wall motion contractility were within normal limits. Estimated ejection fraction is 55% to 60%." He had consultation from Dr. Rodarte from infectious diseases services. He recommended that the patient continue on Zosyn while we awaited sensitivities on the urine cultures. Sensitivities ultimately showed he was sensitive to ampicillin and he was transitioned to this medication intravenously. The following day, on 10/23/16, the patient was noted to be in atrial fibrillation. He converted independently back to normal sinus rhythm, but went back into Afib two further times during the hospitalization. He was in consultation again by Cardiology who ultimately recommended cardioversion. This was performed on 10/25/16 with good results. The patient has remained in sinus rhythm. He is now on the metoprolol and Multaq with Xarelto for stroke prevention. During the hospitalization, Mr. Cox has evidenced anemia. His hemoglobin was 11.7 with a hematocrit of 34, on arrival it was 14.7 with a hematocrit of 45. I suspect in part that this reflects dilutional effects from intravenous fluids administered during the hospitalization as well as multiple blood draws and his sepsis with bacteremia. However, he also does have significant iron deficiency anemia. His total iron level is less than 15 with a percent saturation of 9. Of course, his ferritin is quite high at 728.2 in the setting of his infection. The patient had a stool occult blood, which was positive. He has no overt symptoms of blood loss and his vitals are stable. I reviewed the case with Dr. Burns. Given the fact that the patient does need to go on anticoagulation for stroke prevention, the recommendation is that he follow up with outpatient appointment with Gastroenterology for consideration of endoscopy. The patient reports he did have a colonoscopy approximately [address] Lopez, which showed mild sigmoid diverticulosis only with plan to follow up in 5 years. Mr. Cox is medically stable for discharge to home. He did have the stent removed by Dr. Mtz on 10/25/16, concerned that it was a nidus infection, though thought at this point from Dr. Rodarte and Dr. Mtz is the patient likely has prostatitis from which an infection was seeded tp the kidney stone and stent during the intervention performed back in September. Recommendations are for Mr. Cox to continue on intravenous antibiotics until 10/30/16. Dr. Rodarte has recommended that daptomycin will be suitable agent, which he will receive on a daily basis. He is to return tomorrow for a one- time infusion in the emergency department and then will follow up at the Infusion Center on Friday for continued infusion through 10/30/16. At that point, he will go on to Augmentin twice daily for 21 days to start on 10/31/16. Mr. Cox is medically stable to discharge home. DISPOSITION: Home. DIET: Heart healthy. ACTIVITY: As tolerated. FOLLOWUP PLANS: 1. Please follow up with Dr. Mtz regarding prostatitis. 2. Please follow up with Dr. Wright regarding atrial fibrillation. 3. Please follow up with [facility] regarding iron deficiency anemia. 4. Please follow up with Dr. Jones regarding coordination of care. TIME SPENT: Approximately 60 minutes were spent on the discharge of this patient, more than half the time spent with the patient at the bedside reviewing the events leading up to this hospitalization, performing the physical examination, and reviewing my plan of care. ALEAH RODRIGUEZ NP [id number]/[facility] #: [id number] DASHAWN
--- NOTE | 2016-10-28 04:17 | CARD ---
PROCEDURE NOTE: DATE OF PROCEDURE: 10/25/16 - ROOM #431 HISTORY: This is a 76-year-old gentleman who is admitted with urinary tract infection and found to be in atrial fibrillation. He failed to convert, was rate controlled with replacement of his electrolytes and addition of Multaq. Informed consent was obtained. DESCRIPTION OF PROCEDURE: The patient was brought to the procedure room in a fasting state. He was treated with 50 mcg of fentanyl and 8 mg of Versed. A single synchronous biphasic shock of 60 joules was applied with conversion to sinus rhythm. PLAN: Is as follows: 1. The patient is to continue on anticoagulation for at least a month and I suggested custodial. 2. He is to continue on Multaq and rate control. 3. He is to return in 1 month's time for routine evaluation. At that time, we will consider weaning him off his medications, possibly his Multaq first and then decreasing the beta tomeka. 4. We will consider prolonged monitoring as an outpatient with an event monitor since he is relatively minimally symptomatic with the AFib. 5. He understands the risk for recurrent AFib and the risk for cardioembolic event. [id number]/[facility] #: [id number] DASHAWN
== END 2016-10-26 12:10 | disposition home or self-care (01) | DRG 698 ==
LOC: ED 16:52 → MEDTELE 21:34 → INTOOBSV 21:34 → OBSVTOIN 10-22 11:13
PROVIDERS: ADMIT Hospitalist; ATTEND Hospitalist
PROC: B246ZZ4 Ultrasonography of Right and Left Heart, Transesophageal (ICD-10-PCS; principal; 2016-10-22)
PROC: 0TP98DZ Removal of Intraluminal Device from Ureter, Via Natural or Artificial Opening Endoscopic (ICD-10-PCS; 2016-10-25)
PROC: 5A2204Z Restoration of Cardiac Rhythm, Single (ICD-10-PCS; 2016-10-25)
DX: T83.518A Infection and inflammatory reaction due to other urinary catheter, initial encounter (principal); A41.81 Sepsis due to Enterococcus; N39.0 Urinary tract infection, site not specified; D50.9 Iron deficiency anemia, unspecified; I48.91 Unspecified atrial fibrillation; E78.5 Hyperlipidemia, unspecified; X58.XXXA Exposure to other specified factors, initial encounter; N20.0 Calculus of kidney; E21.3 Hyperparathyroidism, unspecified; N41.9 Inflammatory disease of prostate, unspecified; Y92.009 Unspecified place in unspecified non-institutional (private) residence as the place of occurrence of the external cause; Z80.0 Family history of malignant neoplasm of digestive organs; Z80.42 Family history of malignant neoplasm of prostate; Z87.891 Personal history of nicotine dependence; Z79.899 Other long term (current) drug therapy; Z80.52 Family history of malignant neoplasm of bladder
CPT/HCPCS: 36415; 76775; 80048; 80053; 81003; 81015; 82272; 82728; 83540; 83550; 83605; 83735; 84443; 85025; 85652; 86140; 86141; 87040; 87077; 87086; 87186; 87205; 87502; 93005; 93312; 93325; 94762; A9270-GY; J0290; J1644; J2250; J2310; J2405; J2543; J3010; J3475

== ENCOUNTER → 2016-10-27 09:00 | Emergency (ER) | payer MEDICARE ==
[~2016-10-27 09:00] MED LIST changes: -Buffered Lidocaine 0.9% SYRIN* 5 ML/SYR SYRINGE ONE; +DAPTOmycin SDV(*) 500 MG in NS 0.9% 50 ML* 50 ML IVPB ONE; -Famotidine IV* 10 MG/ML 2 ML (20 mg) IV ONE; -Famotidine IV* 10 MG/ML 2 ML (20 mg) ONE; -Metoclopramide TAB* 10 MG ONE; -Metoclopramide TAB* 10 MG PO ONE; -cefTRIAXone(*) 2 GM ADDV.VIAL IVPB ONE
[2016-10-27 11:22] VITALS: BP 129/84
--- NOTE | 2016-10-28 10:56 | ED ---
Naveen Jesus Soohyun, scribed for Brian Healy MD on 10/27/16 at 0920 . Complex/Multi-Sys Presentation - HPI Summary HPI Summary: This 76 y/o male presents to ED for abx infusion tx today. Pt was recently [place] [facility] [place] and is supposed to have abx tx, but was unable to set up treatment due to it being weekend. He decided to visit ED for today's treatment. Pt is currently denying any medical issues or complaints. PMHx includes recurrent kidney stones s/p stent placement, hyperparathyroidism s/p parathyroidectomy, and bladder CA. FHx is positive for colon CA to mother and prostate CA to father. - History Of Current Complaint Chief Complaint: EDGeneral Time Seen by Provider: 10/27/16 09:13 Hx Obtained From: Patient, Medical Records - Allergies/Home Medications Allergies/Adverse Reactions: Allergies Allergy/AdvReac Type Severity Reaction Status Date / Time No Known Allergies Allergy Verified 10/21/16 22:22 PMH/Surg Hx/FS Hx/Imm Hx Endocrine/Hematology History: Denies: Hx Anticoagulant Therapy, Hx Blood Disorders, Hx Blood Transfusions, Hx Bone Marrow Disease, Hx Diabetes, Hx Systemic Lupus Erythematosus, Hx Sickle Cell Disease, Hx Thyroid Disease, Hx Anemia, Hx Unexplained Bleeding, Other Endocrine/Hematological Disorders Cardiovascular History: Denies: Hx Aneurysm, Hx Angina, Hx Angioplasty, Hx Auto Implanted Cardiovert Defib, Hx Congestive Heart Failure, Hx Deep Vein Thrombosis, Hx Embolism, Hx Hypercholesterolemia, Hx Hypotension, Hx Hypertension, Hx Pacemaker/ICD, Hx Peripheral Vascular Disease, Hx Rheumatic Fever, Hx Syncope Respiratory History: Reports: Hx Seasonal Allergies Denies: Hx Asthma, Hx Chronic Bronchitis, Hx Chronic Obstructive Pulmonary Disease (COPD), Hx Cystic Fibrosis, Hx Lung Cancer, Hx Pleural Effusion, Hx Pneumonia, Hx Pulmonary Edema, Hx Pulmonary Embolism, Hx Sleep Apnea, Other Respiratory Problems/Disorders GI History: Denies: Hx Cirrhosis, Hx Crohn's Disease, Hx Diverticulosis, Hx Gall Bladder Disease, Hx Gastroesophageal Reflux Disease, Hx Gastrointestinal Bleed, Hx Hiatal Hernia, Hx Irritable Bowel, Hx Jaundice, Hx Obstructive Bowel, Hx Ileostomy, Hx Pyloric Stenosis, Hx Ulcer, Other GI Disorders History: Reports: Hx Kidney Infection - A FEW WEEKS AGO, Hx Kidney Stones - HISTORY OF AND CURRENTLY, Hx Renal Disease - extensive HX of kidney stones Denies: Hx Acute Renal Failure, Hx Benign Prostatic Hyperplasia, Hx Chronic Renal Failure, Hx Dialysis Comment Only: Other Problems/Disorders - kidney stones Musculoskeletal History: Reports: Hx Arthritis Denies: Hx Rheumatoid Arthritis Sensory History: Reports: Hx Contacts or Glasses - GLASSES, Hx Hearing Problem - 60% Denies: Hx Cataracts, Hx Eye Injury, Hx Eye Prosthesis, Hx Glaucoma, Hx Legally Blind, Hx Macular Degeneration, Hx Vision Problem, Hx Deafness, Hx Hearing Aid, Other Sensory Impairments Opthamlomology History: Reports: Hx Contacts or Glasses - GLASSES Denies: Hx Cataracts, Hx Eye Injury, Hx Eye Prosthesis, Hx Glaucoma, Hx Legally Blind, Hx Macular Degeneration, Hx Vision Problem, Other Sensory Impairments Psychiatric History: Denies: Hx Anxiety, Hx Attention Deficit Hyperactivity Disorder, Hx Eating Disorder, Hx Depression, Hx Panic Disorder, Hx Post Traumatic Stress Disorder, Hx Inpatient Treatment, Hx Community Mental Health Tx, Hx Schizophrenia, Hx Bipolar Disorder, Hx Suicide Attempt, Hx of Violent Episodes Against Others, Hx Substance Abuse, Other Psychiatric Issues/Disorders - Cancer History Hx Chemotherapy: No Hx Radiation Therapy: No Hx Palliative Cancer Treatment: No - Surgical History Surgery Procedure, Year, and Place: kidney stones removed 6X+. [place]-20 YEARS. 09/2016- ST[place] [facility] Hx Anesthesia Reactions: No Infectious Disease History: Denies: Hx Hepatitis, Hx Tuberculosis, Traveled Outside the [place] in Last 30 Days - Family History Known Family History: Positive: Other Family History: Positive colon CA to mother and Prostate CA to father - Social History Alcohol Use: Daily Alcohol Amount: 3 OUNCES DAILY Hx Substance Use: No Substance Use Type: Reports: None Hx Tobacco Use: Yes Smoking Status (MU): Former Smoker Amount Used/How Often: 1 PPD X 7 YEARS Have You Smoked in the Last Year: No Review of Systems Negative: Fever Negative: Vomiting, Nausea All Other Systems Reviewed And Are Negative: Yes Physical Exam - Summary Physical Exam Summary: VITAL SIGNS: Reviewed. GENERAL: Patient is a well-developed and nourished MALE who is lying comfortable in the stretcher. Patient is not in any acute respiratory distress. HEAD AND FACE: No signs of trauma. No ecchymosis, hematomas or skull depressions. No sinus tenderness. EYES: PERRLA, EOMI x 2, No injected conjunctiva, no nystagmus. EARS: Hearing grossly intact. Ear canals and tympanic membranes are within normal limits. MOUTH: Oropharynx within normal limits. NECK: Supple, trachea is midline, no adenopathy, no JVD, no carotid bruit, no c- spine tenderness, neck with full ROM. CHEST: Symmetric, no tenderness at palpation LUNGS: Clear to auscultation bilaterally. No wheezing or crackles. CVS: Regular rate and rhythm, S1 and S2 present, no murmurs or gallops appreciated. ABDOMEN: Soft, non-tender. No signs of distention. No rebound no guarding, and no masses palpated. Bowel sounds are normal. EXTREMITIES: FROM in all major joints, no edema, no cyanosis or clubbing. NEURO: Alert and oriented x 3. No acute neurological deficits. Speech is normal and follows commands. SKIN: Dry and warm Triage Information Reviewed: Yes Vital Signs On Initial Exam: Initial Vitals Temp Pulse Resp BP Pulse Ox 97.0 F 66 16 134/86 100 10/27/16 09:08 10/27/16 09:08 10/27/16 09:08 10/27/16 09:08 10/27/16 09:08 Vital Signs Reviewed: Yes - [place] Coma Scale Coma Scale Total: 15 Diagnostics - Vital Signs Vital Signs Temp Pulse Resp BP Pulse Ox 10/27/16 09:08 97.0 F 66 16 134/86 100 - Laboratory Lab Statement: Any lab studies that have been ordered have been reviewed, and results considered in the medical decision making process. Complex Multi-Symp Course/Dx Assessment/Plan: This 76 y/o male presents to ED for abx infusion tx today. Pt was recently seen [place] [facility] [place] and is supposed to have abx tx, but was unable to set up treatment due to it being weekend. He decided to visit ED for today's treatment. Pt is currently denying any medical issues or complaints. PMHx includes recurrent kidney stones s/p stent placement, hyperparathyroidism s /p parathyroidectomy, and bladder CA. FHx is positive for colon CA to mother and prostate CA to father. Pt came into ER requesting his last dose of Daptomycin that is being used to treat his prostatitis. Pt reports that he is feeling better, denying any fever, chills, or other complaints. NALLELY Rodriguez consulted the patient today, who arranged for the patient to return to ED today. She reports rash in the back almost resolved. Patient still has no complaints. Patient received the last dose of antibiotics w/o complications and he will be discharged home with F/ U of PMD. He is hemodynamically stable A +O x 3. - Diagnoses Differential Diagnoses/HQI/PQRI: Other - Antibiotic infusion Provider Diagnoses: Antibiotic infusion Discharge - Discharge Plan Condition: Stable Disposition: HOME Referrals: Delmy Jones MD [Primary Care Provider] - 2 Days Additional Instructions: You presents to ED today for antibiotic infusion treatment. Be sure to follow up with your primary care provider. The documentation as recorded by the Naveen river Soohyun accurately reflects the service I personally performed and the decisions made by , Brian Healy MD.
== END | disposition home or self-care (01) ==
LOC: ED 09:00
DX: A41.9 Sepsis, unspecified organism (principal); Z87.891 Personal history of nicotine dependence
CPT/HCPCS: 96360; 96365; 99282; J0878